=== PATIENT | male | born 1950 | race Caucasian/White ===

== ENCOUNTER 2016-09-17 09:28 | Inpatient (IN) | payer MEDICARE, OTHER ==
[2016-09-17] MEDS ORDERED: ONDANSETRON 4 MG/2 ML VIAL IVP STA (09:50)
[2016-09-17] MEDS ORDERED: SODIUM CHLORIDE 0.9% 1,000 ML IV ONE (09:50)
[2016-09-17] MEDS ORDERED: HYDROmorphone 1 MG/ML SYRINGE IVP STA ×2 (09:50→14:15)
[2016-09-17] MEDS ORDERED: HYDROmorphone 1 MG/ML SYRINGE ONE ×2 (10:04→14:16)
[2016-09-17] MEDS ORDERED: ONDANSETRON 4 MG/2 ML VIAL ONE (10:05)
[2016-09-17] MEDS ORDERED: IOPAMIDOL-300 100 ML VIAL IVP ONE (11:06)
[2016-09-17] MEDS ORDERED: PIPERACILLIN/TAZOBACTAM 4.5 GM in SODIUM CHLORIDE 0.9% MINIBAG 100 ML IV STA (13:53)
[2016-09-17] MEDS ORDERED: ALBUTEROL NEB 2.5 MG/3 ML INH PRN (14:47)
[2016-09-17] MEDS: ONDANSETRON 4 MG/2 ML VIAL IVP PRN (16:53)
[2016-09-17] MEDS: SODIUM CHLORIDE FLUSH 0.9% 10 ML SYRINGE IVP PRN ×2 (16:53→20:05)
[2016-09-17] MEDS: SODIUM CHLORIDE 0.9% 1,000 ML IV SCH ×2 (16:53→23:52)
[2016-09-17] MEDS: HYDROmorphone 1 MG/ML SYRINGE IVP PRN ×2 (17:09→20:05)
[2016-09-17] MEDS: AMPICILLIN/SULBACTAM 3 GM in SODIUM CHLORIDE 0.9% MINIBAG 100 ML IV SCH ×2 (18:05→23:55)
[2016-09-17] MEDS: FORMOTEROL FUMARATE NEB 20 MCG/2 ML INH SCH (19:30)
[2016-09-17] MEDS: BUDESONIDE 0.5 MG/2 ML NEB INH SCH (19:30)
[2016-09-17] MEDS: IPRATROPIUM/ALBUTEROL 3 ML NEB INH SCH (19:30)
[2016-09-17] MEDS: FAMOTIDINE 20 MG/50 ML 50 ML IV SCH (20:04)
[2016-09-17] MEDS: SODIUM CHLORIDE FLUSH 0.9% 10 ML SYRINGE IVP SCH (21:13)
[2016-09-18] MEDS: ONDANSETRON 4 MG/2 ML VIAL IVP PRN
[2016-09-18] MEDS: SODIUM CHLORIDE FLUSH 0.9% 10 ML SYRINGE IVP PRN
[2016-09-18] MEDS: HYDROmorphone 1 MG/ML SYRINGE IVP PRN ×6 (05:09→22:09)
[2016-09-18] MEDS: AMPICILLIN/SULBACTAM 3 GM in SODIUM CHLORIDE 0.9% MINIBAG 100 ML IV SCH ×4 (05:10→23:44)
[2016-09-18] MEDS: SODIUM CHLORIDE FLUSH 0.9% 10 ML SYRINGE IVP SCH ×3 (05:19→21:06)
[2016-09-18] MEDS ORDERED: IPRATROPIUM 0.2 MG/ML NEB INH SCH (07:00)
[2016-09-18] MEDS: IPRATROPIUM/ALBUTEROL 3 ML NEB INH SCH ×4 (07:30→19:30)
[2016-09-18] MEDS: BUDESONIDE 0.5 MG/2 ML NEB INH SCH ×2 (07:30→19:30)
[2016-09-18] MEDS: FORMOTEROL FUMARATE NEB 20 MCG/2 ML INH SCH ×2 (07:30→19:30)
[2016-09-18] MEDS: FAMOTIDINE 20 MG/50 ML 50 ML IV SCH ×2 (08:26→21:11)
[2016-09-18] MEDS: SODIUM CHLORIDE 0.9% 1,000 ML IV SCH ×4 (08:45→23:34)
[2016-09-18] MEDS ORDERED: SODIUM CHLORIDE 0.9% 800 ML IV ONE (09:05)
[2016-09-18] MEDS ORDERED: BUPIVACAINE 0.5%-EPI 1:200000 PF 30 ML VIAL SUBQ ONE (09:29)
[2016-09-18] MEDS ORDERED: LACTATED RINGERS 1,000 ML IV ONE ×2 (09:47)
[2016-09-18] MEDS ORDERED: GLYCOPYRROLATE 1 MG/5 ML VIAL IVP ONE (10:00)
[2016-09-18] MEDS ORDERED: ALBUTEROL 6.7 GM INHALER INH ONE (10:00)
[2016-09-18] MEDS ORDERED: DEXAMETHASONE 4 MG/ML VIAL IVP ONE (10:00)
[2016-09-18] MEDS ORDERED: MIDAZOLAM 2 MG/2 ML VIAL IVP ONE (10:00)
[2016-09-18] MEDS ORDERED: NEOSTIGMINE 1 MG/1 ML 10 ML MDV IVP ONE (10:00)
[2016-09-18] MEDS ORDERED: ACETAMINOPHEN 1,000 MG/100 ML VIAL IV ONE (10:00)
[2016-09-18] MEDS ORDERED: fentaNYL 250 MCG/5 ML VIAL IVP ONE (10:00)
[2016-09-18] MEDS ORDERED: ESMOLOL 100 MG/10 ML VIAL IVP ONE (10:00)
[2016-09-18] MEDS ORDERED: ROCURONIUM 50 MG/5 ML VIAL IVP ONE (10:00)
[2016-09-18] MEDS ORDERED: ONDANSETRON 4 MG/2 ML VIAL IVP ONE (10:00)
[2016-09-18] MEDS ORDERED: LIDOCAINE-MPF 2% 5 ML VIAL IM ONE (10:00)
[2016-09-18] MEDS ORDERED: PROPOFOL 200 MG/20 ML VIAL IVP ONE (10:00)
[2016-09-18] MEDS ORDERED: NALOXONE 0.4 MG/1 ML 10 ML MDV IVP ONE (10:00)
[2016-09-18] MEDS ORDERED: SUCCINYLCHOLINE 200 MG/10 ML VIAL IVP ONE (10:00)
[2016-09-18] MEDS: DOCUSATE SODIUM 250 MG CAPSULE PO SCH ×2 (13:53→21:11)
[2016-09-18] MEDS: HYDROcod/ACETAM 5/325 MG TABLET PO PRN ×3 (16:02→21:11)
[2016-09-19] MEDS: HYDROmorphone 1 MG/ML SYRINGE IVP PRN ×5 (04:57→21:20)
[2016-09-19] MEDS: AMPICILLIN/SULBACTAM 3 GM in SODIUM CHLORIDE 0.9% MINIBAG 100 ML IV SCH ×3 (05:44→18:28)
[2016-09-19] MEDS: HYDROcod/ACETAM 5/325 MG TABLET PO PRN ×4 (05:48→18:01)
[2016-09-19] MEDS: SODIUM CHLORIDE FLUSH 0.9% 10 ML SYRINGE IVP SCH ×3 (06:09→19:19)
[2016-09-19] MEDS: BUDESONIDE 0.5 MG/2 ML NEB INH SCH ×2 (07:50→19:25)
[2016-09-19] MEDS: IPRATROPIUM/ALBUTEROL 3 ML NEB INH SCH ×4 (07:50→19:25)
[2016-09-19] MEDS: FORMOTEROL FUMARATE NEB 20 MCG/2 ML INH SCH ×2 (07:50→19:25)
[2016-09-19] MEDS: SODIUM CHLORIDE 0.9% 1,000 ML IV SCH ×2 (08:05→14:02)
[2016-09-19] MEDS: DOCUSATE SODIUM 250 MG CAPSULE PO SCH ×2 (08:05→21:20)
[2016-09-19] MEDS: FAMOTIDINE 20 MG/50 ML 50 ML IV SCH ×2 (08:05→21:20)
[2016-09-19] MEDS: SODIUM CHLORIDE FLUSH 0.9% 10 ML SYRINGE IVP PRN (08:06)
[2016-09-19] MEDS ORDERED: SODIUM CHLORIDE 0.9% 1,000 ML IV SCH (13:35)
[2016-09-20] MEDS: AMPICILLIN/SULBACTAM 3 GM in SODIUM CHLORIDE 0.9% MINIBAG 100 ML IV SCH ×4 (00:25→20:15)
[2016-09-20] MEDS: HYDROcod/ACETAM 5/325 MG TABLET PO PRN ×2 (00:26→08:40)
[2016-09-20] MEDS: HYDROmorphone 1 MG/ML SYRINGE IVP PRN ×4 (03:50→22:45)
[2016-09-20] MEDS: SODIUM CHLORIDE 0.9% 1,000 ML IV SCH (07:04)
[2016-09-20] MEDS: SODIUM CHLORIDE FLUSH 0.9% 10 ML SYRINGE IVP SCH ×3 (07:05→19:59)
[2016-09-20] MEDS: BUDESONIDE 0.5 MG/2 ML NEB INH SCH ×2 (08:41→21:33)
[2016-09-20] MEDS: IPRATROPIUM/ALBUTEROL 3 ML NEB INH SCH ×4 (08:41→22:14)
[2016-09-20] MEDS: FORMOTEROL FUMARATE NEB 20 MCG/2 ML INH SCH ×2 (08:55→22:14)
[2016-09-20] MEDS ORDERED: SALINE ENEMA 133 ML BOTTLE RC SCH ×2 (09:00→13:00)
[2016-09-20] MEDS: FAMOTIDINE 20 MG/50 ML 50 ML IV SCH ×2 (10:45→21:09)
[2016-09-20] MEDS: DOCUSATE SODIUM 250 MG CAPSULE PO SCH ×2 (10:47→21:09)
[2016-09-20] MEDS ORDERED: SOAP SUDS ENEMA 1 EACH RC PRN (12:10)
[2016-09-20] MEDS: SODIUM CHLORIDE FLUSH 0.9% 10 ML SYRINGE IVP PRN ×2 (19:57→22:45)
[2016-09-21] MEDS: AMPICILLIN/SULBACTAM 3 GM in SODIUM CHLORIDE 0.9% MINIBAG 100 ML IV SCH ×3 (00:41→11:31)
[2016-09-21] MEDS: HYDROcod/ACETAM 5/325 MG TABLET PO PRN ×3 (01:54→10:29)
[2016-09-21] MEDS: SODIUM CHLORIDE FLUSH 0.9% 10 ML SYRINGE IVP SCH (06:40)
[2016-09-21] MEDS: BUDESONIDE 0.5 MG/2 ML NEB INH SCH (07:46)
[2016-09-21] MEDS: IPRATROPIUM/ALBUTEROL 3 ML NEB INH SCH ×2 (07:46→11:45)
[2016-09-21] MEDS: FORMOTEROL FUMARATE NEB 20 MCG/2 ML INH SCH (07:46)
[2016-09-21] MEDS: FAMOTIDINE 20 MG/50 ML 50 ML IV SCH (09:15)
[2016-09-21] MEDS: DOCUSATE SODIUM 250 MG CAPSULE PO SCH (09:15)
[2016-09-21] MEDS: SODIUM CHLORIDE FLUSH 0.9% 10 ML SYRINGE IVP PRN (12:28)
[2016-09-21] MEDS: HYDROmorphone 1 MG/ML SYRINGE IVP PRN (12:28)
== END 2016-09-21 14:51 | disposition home or self-care (01) | DRG 854 ==
PROC: 0FT44ZZ Resection of Gallbladder, Percutaneous Endoscopic Approach (ICD-10-PCS; principal; 2016-09-18 09:00)
DX: A41.51 Sepsis due to Escherichia coli [E. coli] (principal); K80.00 Calculus of gallbladder with acute cholecystitis without obstruction; A41.59 Other Gram-negative sepsis; B95.2 Enterococcus as the cause of diseases classified elsewhere; B96.20 Unspecified Escherichia coli [E. coli] as the cause of diseases classified elsewhere; B96.89 Other specified bacterial agents as the cause of diseases classified elsewhere; K82.8 Other specified diseases of gallbladder; E86.0 Dehydration; K59.00 Constipation, unspecified; J44.9 Chronic obstructive pulmonary disease, unspecified; K21.9 Gastro-esophageal reflux disease without esophagitis; Z87.891 Personal history of nicotine dependence

== ENCOUNTER 2017-11-04 08:00 | Outpatient (CLI) | payer MEDICARE, OTHER ==
[2017-11-04 13:07] LABS: BASOPHILS % (AUTO) 1.1 %; EOSINOPHILS % (AUTO) 1.1 %; HGB - HEMOGLOBIN 14.7 g/dL (14.0-18.0); LYMPHOCYTES % (AUTO) 20.5 %; MEAN CORPUSCULAR HEMOGLOBIN 31.4 pg (27.0-31.0); MEAN CORPUSCULAR HGB CONC 34.6 g/dL (32.0-36.0); MEAN CORPUSCULAR VOLUME 90.9 fL (80.0-94.0); MEAN PLATELET VOLUME 8.4 fL (7.4-11.4); MONOCYTES % (AUTO) 11.1 %; NEUTROPHILS % (AUTO) 66.2 %; PLT - PLATELET COUNT 199 10^3/uL (130-450); RED BLOOD COUNT 4.67 10^6/uL (4.70-6.10); RED CELL DISTRIBUTION WIDTH 12.7 % (12.0-15.0); WHITE BLOOD COUNT 8.8 x10^3/uL (4.8-10.8)
[2017-11-04 13:48] LABS: ABNORMAL LYMPHS % (MANUAL) 0 %; BAND NEUTROPHILS % (MANUAL) 3 %; EOSINOPHILS # (MANUAL) 0.2 10^3/uL (0-0.7); LYMPHOCYTES # (MANUAL) 1.9 10^3/uL (1.5-3.5); LYMPHOCYTES % (MANUAL) 19 %; MONOCYTES # (MANUAL) 1.2 10^3/uL (0.0-1.0); NEUTROPHILS # (MANUAL) 5.5 10^3/uL (1.5-6.6); NEUTROPHILS % (MANUAL) 59 %
[2017-11-04 13:49] LABS: DIFFERENTIAL COMMENT MANUAL DIFFERENTIAL; PLATELET ESTIMATE, MANUAL NORMAL (130-450,000) (NORMAL); PLATELET MORPHOLOGY NORMAL APPEARANCE (NORMAL); RBC MORPHOLOGY (MULTIPLE) NORMAL APPEARANCE (NORMAL)
[2017-11-04 14:03] LABS: ALBUMIN/GLOBULIN RATIO 1.3 (1.0-2.2); ALKALINE PHOSPHATASE 44 IU/L (42-121); ALT ALANINE AMINOTRANSFERASE 16 IU/L (10-60); AST ASPARTATE AMINOTRANSFERASE 18 IU/L (10-42); BILIRUBIN,TOTAL 0.8 mg/dL (0.2-1.0); BUN - BLOOD UREA NITROGEN 13 mg/dL (6-20); CALCIUM 8.5 mg/dL (8.5-10.3); CARBON DIOXIDE - CO2 26 mmol/L (21-32); CHLORIDE 104 mmol/L (101-111); CHOLESTEROL 166 mg/dL; GFR - MDRD 75 (>89); GLUCOSE 92 mg/dL (70-100); HDL CHOLESTEROL 55 mg/dL; LDL CHOLESTEROL,CALCULATED 92 mg/dL; LDL/HDL RATIO 1.7 (<3.6); SODIUM 137 mmol/L (135-145); TOTAL PROTEIN 7.2 g/dL (6.7-8.2); VLDL CHOLESTEROL 19 mg/dL
== END 2017-11-04 08:01 | disposition home or self-care (01) ==
LOC: LAB.N 08:00
PROVIDERS: ATTEND Nurse Practitioner Gerontology
DX: I10 Essential (primary) hypertension (principal)
CPT/HCPCS: 36415; 80053; 80061; 83721; 85025

== ENCOUNTER 2019-01-11 10:45 | Outpatient (CLI) | payer MEDICARE, OTHER ==
--- NOTE | 2019-01-11 15:04 | XRAY Report ---
Reason: COPD Procedure Date: 01/11/2019 Accession Number: [id number] / [id number] Procedure: XR - Chest 2 View X-Ray CPT Code: 08843 FULL RESULT: EXAM: CHEST RADIOGRAPHY EXAM DATE: 01/11/2019 11:25 AM. CLINICAL HISTORY: Chronic obstructive pulmonary disease. COMPARISON: CHEST 2 VIEW PA/LAT 09/17/2016 3:22 PM. TECHNIQUE: 2 views. FINDINGS: Lungs/Pleura: There is hyperlucency and mild hyperinflation bilaterally, again greater on the left than the right, consistent with superimposed emphysema. No focal airspace opacities. No appreciable edema, effusion or extra-ventilatory air. Mediastinum: Heart and mediastinal contours are unremarkable. Other: None. IMPRESSION: Stable radiographic sequela of emphysema. RADIA
== END 2019-01-11 10:46 | disposition home or self-care (01) ==
LOC: DI 10:45
PROVIDERS: ATTEND Internal Medicine
DX: J43.9 Emphysema, unspecified (principal)
CPT/HCPCS: 71046

== ENCOUNTER 2021-02-16 07:00 | Outpatient (CLI) | payer MEDICARE | END 2021-02-16 23:59 | disposition home or self-care (01) | LOC: COV 07:00 | PROVIDERS: ATTEND Ophthalmology | DX: Z01.812 Encounter for preprocedural laboratory examination (principal); Z20.822 Contact with and (suspected) exposure to COVID-19 ==

== ENCOUNTER 2021-02-19 06:57 | Day surgery (SDC) | payer MEDICARE ==
[~2021-02-19 06:57] MED LIST: CYCLOPENTOLATE 1% OPHTH DROPS 2 ML ONE; KETOROLAC 0.45% OPHTH DROPS ONE; PHENYLEPHRINE 2.5% OPHTH 2 ML DROPS ONE; PROPARACAINE 0.5% OPHTH DROPS 15 ML ONE
[2021-02-19] MEDS ORDERED: BRIMONIDINE 0.2% OPHTH DROPS 5 ML ONE (07:02)
[2021-02-19] MEDS ORDERED: EPINEPHrine 1 MG/ML AMP ONE (07:02)
[2021-02-19] MEDS ORDERED: BSS/LIDOCAINE/EPINEPHRINE 1 ML SYRINGE ONE (07:02)
[2021-02-19] MEDS ORDERED: TRIAMCIN/MOXIFLOX OPHTHALMIC 0.6 ML VIAL IO ONE ×2 (07:02→08:50)
[2021-02-19] MEDS ORDERED: TIMOLOL 0.5% OPHTH DROPS ONE (07:02)
[2021-02-19] MEDS ORDERED: VANCOMYCIN OPHTHALMI 8MG/0.8ML 8 MG/0.8 ML SYRINGE IO ONE ×2 (07:03→08:50)
[2021-02-19] MEDS ORDERED: MIDAZOLAM 2 MG/2 ML VIAL ONE (07:06)
[2021-02-19] MEDS ORDERED: LACTATED RINGERS 1,000 ML IV ONE (07:07)
--- NOTE | 2021-02-19 08:12 | ANESTHESIA ---
Pre-Anesthesia VS, & Labs - Diagnosis right senile combined cataract - Procedure right cataract extraction with intraocular lens implant Vital Signs: Temp Pulse Resp BP Pulse Ox 36.1 C L 80 16 141/86 H 98 02/19/21 07:12 02/19/21 07:12 02/19/21 07:12 02/19/21 07:12 02/19/21 07:12 Height: 5 ft 11 in Weight (kg): 80.7 kg Body Mass Index: 24.7 BMI Classification: Healthy weight - NPO >8 hours Home Medications and Allergies Albuterol Sulfate [Proair Hfa Inhaler] 2 puffs INH Q4H PRN 09/17/16 Fluticasone/Salmeterol [Advair 100-50 Diskus] 1 puffs INH BID 09/17/16 Tiotropium [place] [Spiriva] 1 puffs INH DAILY 09/17/16 Allergies/Adverse Reactions: Allergies Allergy/AdvReac Type Severity Reaction Status Date / Time No Known Drug Allergies Allergy Verified 02/18/21 14:33 Anes History & Medical History - Anesthetic History Anesthesia Complications: reports: No previous complications - Medical History Cardiovascular: reports: None Pulmonary: reports: Asthma, COPD Gastrointestinal: reports: GERD Urinary: reports: None Musculoskeletal: reports: Scoliosis Endocrine/Autoimmune: reports: None Blood Disorders: reports: None Skin: reports: None Smoking Status: Never smoker - Surgical History General: reports: Cholecystectomy Eyes Ears Nose Throat (EENT): reports: Other Exam General: Alert Dental: WNL Mouth Opening: Greater than 4 Fingerbreadths Mallampati classification: II Respiratory: Lungs clear Cardiovascular: Regular rate Mental/Cognitive Status: Alert/Oriented X3 Plan Anesthesia Type: MAC Consent for Procedure(s) Verified and Reviewed: Yes Code Status: Attempt Resuscitation ASA classification: 2-Mild systemic disease Is this case an emergency?: No
[2021-02-19] MEDS ORDERED: TIMOLOL 0.5% OPHTH DROPS OPTH ONE (08:49)
[2021-02-19] MEDS ORDERED: EPINEPHrine 1 MG/ML AMP IR ONE (08:49)
[2021-02-19] MEDS ORDERED: CHONDR SULF/HYALURONATE SYRINGE IO ONE (08:49)
[2021-02-19] MEDS ORDERED: BRIMONIDINE 0.2% OPHTH DROPS 5 ML OPTH ONE (08:49)
[2021-02-19] MEDS ORDERED: PROPARACAINE 0.5% OPHTH DROPS 15 ML EACHEYE ONE (08:50)
[2021-02-19] MEDS ORDERED: BSS/LIDOCAINE/EPINEPHRINE 1 ML SYRINGE IO ONE (08:50)
--- NOTE | 2021-02-19 09:09 | OPERATIVE REPORT ---
Operative Report - Other Other Information/Narrative: Date of Surgery: 02/19/21 Preop Dx: Visually significant cataract right eye. This was the first cataract surgery. Postop Dx: Same Procedure: Phacoemulsification with posterior chamber toric intraocular lens implant right eye Surgeon: Dr. Miguel Jules Anesthesia: Monitored anesthesia care Complications: None Operative Indications: This is a 70-year-old M with progressive vision loss in the right eye due to 3+ nuclear sclerotic. Best corrected visual acuity was 20/30 with glare to 20/500 vision in the right eye. Indications for surgery were: - Overall decrease in vision - Difficulty seeing words, closed captions, or game scores on TV - Difficulty seeing street signs - Difficulty driving at night because of headlights from other vehicles - Difficulty with glare or bright lights in any situation - Decreased acuity with firearms The patient was consented at length concerning the risks and benefits of catarac t surgery after which the patient expressed a desire to proceed with surgery. Operative Procedure: The patients cornea was marked in the pre-surgical area to indicate the axis for the toric intraocular lens. The patient was taken into OR#3 and placed under monitored anesthesia care. A surgical time-out was conducted confirming correct patient, correct procedure, and correct surgical site. The patient was given topical anesthesia and then prepped and draped in the usual sterile fashion. The eye was entered at the 6 and 3 oclock positions. Intracameral Shugarcaine was injected into the anterior chamber followed by a dispersive viscoelastic. A continuous-tear curvilinear capsulorhexis was performed. The nucleus was hydrodissected and phacoemulsified. The cortex was evacuated using automated infusion and aspiration. A cohesive viscoelastic was injected into the capsular bag and a 14.0 diopter toric intraocular lens was inserted into the bag and rotated to axis 094. Infusion and aspiration were used to evacuate the viscoelastic materials from the eye and the IOL was verified to remain on axis. The wounds were hydrated and the eye inflated to physiologic pressure using balanced salt solution. Approximately 0.25ml of a mixture of triamcinolone and moxifloxacin was injected trans- sclerally into the vitreous in the inferotemporal quadrant using a 30 gauge cannula. An additional 0.55ml of a mixture of triamcinolone, moxifloxacin, and vancomycin was injected subconjunctivally in the superior quadrant for infection and inflammation prophylaxis. Wound integrity was checked with Weck-Conchita sponges and the IOL axis was once again verified to be on the correct axis. The patient was taken from the operating room in good condition and given post-op i nstructions.
[2021-02-19 09:21] VITALS: BP 142/98
--- NOTE | 2021-02-19 13:41 | ANESTHESIA POST OP EVALUATION ---
Anesthesia Post Eval - Post Anesthesia Eval Vitals: Last Vital Signs Temp 36.2 C L 02/19/21 09:19 Pulse 70 02/19/21 09:19 Resp 18 02/19/21 09:19 BP 142/98 H 02/19/21 09:19 Pulse Ox 100 02/19/21 09:19 CV Function Including HR & BP: Stable Pain Control: Satisfactory Nausea & Vomiting: Negative Mental Status: Baseline Respiratory Status: Airway Patent Hydration Status: Satisfactory Anesthesia Complications: None
== END 2021-02-19 06:58 | disposition home or self-care (01) ==
LOC: SDS 06:57
PROVIDERS: ATTEND Ophthalmology
DX: H25.811 Combined forms of age-related cataract, right eye (principal); J44.9 Chronic obstructive pulmonary disease, unspecified
CPT/HCPCS: 66984; A9270; J3490; J7120; V2632

== ENCOUNTER 2021-05-07 06:39 | Day surgery (SDC) | payer MEDICARE ==
[2021-05-07] MEDS ORDERED: LACTATED RINGERS 1,000 ML IV ONE ×2 (06:46→08:36)
--- NOTE | 2021-05-07 07:27 | ANESTHESIA ---
Pre-Anesthesia VS, & Labs - Diagnosis L senile combined cataract - Procedure L extraction cataract w/IOL Vital Signs: Temp Pulse Resp BP Pulse Ox 36.4 C L 75 20 123/75 98 05/07/21 06:51 05/07/21 06:51 05/07/21 06:51 05/07/21 06:51 05/07/21 06:51 Height: 6 ft Weight (kg): 82 kg Body Mass Index: 24.5 BMI Classification: Healthy weight - NPO >8 hours - Lab Results Lab results reviewed: Yes Home Medications and Allergies Home Medications: Ambulatory Orders Budesonide/Formoterol Fumarate [Symbicort 160-4.5 Mcg Inhaler] 10.2 gm IH 1-2XD 05/06/21 Albuterol Sulfate [Proair Hfa Inhaler] 2 puffs INH Q4H PRN 09/17/16 Tiotropium [place] [Spiriva] 1 puffs INH DAILY 09/17/16 Budesonide/Formoterol Fumarate [Symbicort 160-4.5 Mcg Inhaler] 10.2 gm IH 1-2XD 05/06/21 Allergies/Adverse Reactions: Allergies Allergy/AdvReac Type Severity Reaction Status Date / Time No Known Drug Allergies Allergy Verified 02/18/21 14:33 Anes History & Medical History - Anesthetic History Anesthesia Complications: reports: No previous complications Family history of Anesthesia Complications: Denies Family history of Malignant Hyperthermia: Denies - Medical History Cardiovascular: reports: None Pulmonary: reports: COPD, Emphysema Gastrointestinal: reports: None Urinary: reports: None Musculoskeletal: reports: None Endocrine/Autoimmune: reports: None Blood Disorders: reports: None Skin: reports: None Smoking Status: Never smoker - Surgical History General: reports: Cholecystectomy Eyes Ears Nose Throat (EENT): reports: Cataracts Exam General: Alert, Oriented x3, Cooperative Dental: WNL Mouth Openin Fingerbreadth Neck Mobility: Normal Mallampati classification: II Thyromental Distance: 4-6 cm Respiratory: Lungs clear, Normal breath sounds, No respiratory distress, Other (clears throat routinely after talking) Cardiovascular: Regular rate Neurological: Normal speech Mental/Cognitive Status: Alert/Oriented X3, Normal for patient Cognitive Status: Within normal limits Plan Anesthesia Type: MAC Consent for Procedure(s) Verified and Reviewed: Yes Code Status: Attempt Resuscitation ASA classification: 2-Mild systemic disease Is this case an emergency?: No
[2021-05-07] MEDS ORDERED: EPINEPHrine 1 MG/ML AMP IR ONE (08:02)
[2021-05-07] MEDS ORDERED: BRIMONIDINE 0.2% OPHTH DROPS 5 ML OPTH ONE (08:02)
[2021-05-07] MEDS ORDERED: CHONDR SULF/HYALURONATE SYRINGE IO ONE (08:03)
[2021-05-07] MEDS ORDERED: BSS/LIDOCAINE/EPINEPHRINE 1 ML SYRINGE IO ONE (08:03)
[2021-05-07] MEDS ORDERED: TIMOLOL 0.5% OPHTH DROPS OPTH ONE (08:03)
[2021-05-07] MEDS ORDERED: PROPARACAINE 0.5% OPHTH DROPS 15 ML EACHEYE ONE (08:04)
[2021-05-07] MEDS ORDERED: VANCOMYCIN OPHTHALMI 8MG/0.8ML 8 MG/0.8 ML SYRINGE IO ONE (08:04)
[2021-05-07] MEDS ORDERED: TRIAMCIN/MOXIFLOX OPHTHALMIC 0.6 ML VIAL IO ONE (08:04)
[2021-05-07] MEDS ORDERED: MIDAZOLAM 2 MG/2 ML VIAL ONE (08:08)
--- NOTE | 2021-05-07 08:43 | OPERATIVE REPORT ---
Operative Report - Other Other Information/Narrative: Date of Surgery: 05/07/21 Preop Dx: Visually significant cataract left eye. Cataract surgery was performed in the right eye on . Postop Dx: Same Procedure: Phacoemulsification with posterior chamber intraocular lens implant left eye Surgeon: Dr. Miguel Jules Anesthesia: Monitored anesthesia care Complications: None Operative Indications: This is a 71-year-old M with progressive vision loss in the left eye due to 2+ nuclear sclerotic and 2-3+ cortical cataract. Best corrected visual acuity was 20/25 with glare to 20/70 vision in the left eye. Indications for surgery were: - Overall decrease in vision - Difficulty seeing words on a computer screen - Difficulty reading - Difficulty seeing words, closed captions, or game scores on TV - Difficulty seeing street signs - Difficulty driving in low light or at night - Difficulty driving at night because of headlights from other vehicles - Difficulty with glare or bright lights in any situation - Decreased acuity with firearms The patient was consented at length concerning the risks and benefits of catar act surgery after which the patient expressed a desire to proceed with surgery. Operative Procedure: The patient was taken into OR#3 and placed under monitored anesthesia care. A surgical time-out was conducted confirming correct patient, correct procedure, and correct surgical site. The patient was given topical anesthesia and then prepped and draped in the usual sterile fashion. The eye was entered at the 6 and 3 oclock positions. Intracameral Shugarcaine was injected into the anterior chamber followed by a dispersive viscoelastic. A continuous-tear curvilinear capsulorhexis was performed. The nucleus was hydrodissected and phacoemulsified. The cortex was evacuated using automated infusion and aspiration. A cohesive viscoelastic was injected into the capsular bag and a 16.0 diopter intraocular lens was inserted into the bag. Infusion and aspiration were used to evacuate the viscoelastic materials from the eye. The wounds were hydrated and the eye inflated to physiologic pressure using balanced salt solution. Approximately 0.25ml of a mixture of triamcinolone and moxifloxacin was injected trans-sclerally into the vitreous in the inferotemporal quadrant using a 30 gauge cannula. An additional 0.55ml of a mixture of triamcinolone, moxifloxacin, and vancomycin was injected subconjunctivally in the superior quadrant for infection and inflammation prophylaxis. Wound integrity was checked with Weck-Conchita sponges. The patient was taken from the operating room in good condition and given post-op instructions.
[2021-05-07 08:56] VITALS: BP 117/67
--- NOTE | 2021-05-07 09:03 | ANESTHESIA POST OP EVALUATION ---
Anesthesia Post Eval - Post Anesthesia Eval Vitals: Last Vital Signs Temp 36.7 C 05/07/21 08:55 Pulse 58 L 05/07/21 08:55 Resp 16 05/07/21 08:55 BP 117/67 05/07/21 08:55 Pulse Ox 100 05/07/21 08:55 CV Function Including HR & BP: Stable Pain Control: Satisfactory Nausea & Vomiting: Negative Mental Status: Baseline Respiratory Status: Airway Patent Hydration Status: Satisfactory Anesthesia Complications: None
== END 2021-05-07 06:40 | disposition home or self-care (01) ==
LOC: SDS 06:39
PROVIDERS: ATTEND Ophthalmology
DX: H25.812 Combined forms of age-related cataract, left eye (principal); J43.9 Emphysema, unspecified; Z98.41 Cataract extraction status, right eye; Z87.891 Personal history of nicotine dependence
CPT/HCPCS: 66984; A9270; J3490; J7120

== ENCOUNTER 2021-08-16 14:25 | Outpatient (CLI) | payer MEDICARE ==
--- NOTE | 2021-08-16 15:56 | Ultrasound Report ---
PROCEDURE: Abdomen Limited INDICATIONS: ELEVATED LFT TECHNIQUE: Real-time focused scanning was performed of the abdomen, with image documentation. COMPARISON: 09/17/2016 FINDINGS: The liver measures 13.3 cm. Hepatic echogenicity is increased consistent with hepatic stea tosis. The patient is status post cholecystectomy. The common bile duct is normal measuring 5 mm. The pancreas is not well-seen due to overlying bowel gas. The right kidney has a normal size. The IVC is patent. IMPRESSION: 1. No acute ultrasound abnormality. 2. Status post cholecystectomy. 3. Hepatic steatosis. Reviewed by: Shaun Morfin on 08/16/2021 2:55 PM [place] Approved by: Shaun Morfin on 08/16/2021 2:55 PM [facility] Station ID: [id number]
== END 2021-08-16 14:26 | disposition home or self-care (01) ==
LOC: DI 14:25
PROVIDERS: ATTEND Internal Medicine
DX: R74.8 Abnormal levels of other serum enzymes (principal); K76.0 Fatty (change of) liver, not elsewhere classified

== ENCOUNTER 2022-08-30 16:57 | Inpatient (IN) | payer MEDICARE ==
[2022-08-30] MEDS ORDERED: ONDANSETRON 4 MG/2 ML VIAL IVP STA (17:11)
[2022-08-30] MEDS ORDERED: SODIUM CHLORIDE 0.9% 1,000 ML IV STA ×3 (17:11→21:25)
[2022-08-30 17:40] LABS: BILIRUBIN,TOTAL 8.6 mg/dL (0.2-1.0); CALCIUM 9.2 mg/dL (8.5-10.3); CREATININE 1.1 mg/dL (0.6-1.2); POTASSIUM 4.4 mmol/L (3.5-5.0)
[2022-08-30 18:16] LABS: BASOPHILS % (AUTO) 0.4 %; EOSINOPHILS # (AUTO) 0.6 10^3/uL (0.0-0.7); EOSINOPHILS % (AUTO) 4.9 %; HCT - HEMATOCRIT 45.7 % (42.0-52.0); HGB - HEMOGLOBIN 15.2 g/dL (14.0-18.0); LYMPHOCYTES # (AUTO) 0.2 10^3/uL (1.5-3.5); LYMPHOCYTES % (AUTO) 2.1 %; MEAN CORPUSCULAR HEMOGLOBIN 30.3 pg (27.0-31.0); MEAN CORPUSCULAR HGB CONC 33.3 g/dL (32.0-36.0); MEAN CORPUSCULAR VOLUME 91.2 fL (80.0-94.0); MEAN PLATELET VOLUME 9.5 fL (7.4-11.4); MONOCYTES # (AUTO) 0.1 10^3/uL (0.0-1.0); MONOCYTES % (AUTO) 0.4 %; NEUTROPHILS # (AUTO) 10.2 10^3/uL (1.5-6.6); NEUTROPHILS % (AUTO) 91.5 %; RED BLOOD COUNT 5.01 10^6/uL (4.70-6.10); WHITE BLOOD COUNT 11.2 x10^3/uL (4.8-10.8)
[2022-08-30 18:35] LABS: PLATELET ESTIMATE, MANUAL NORMAL (130-450,000) (NORMAL); PLATELET MORPHOLOGY PLATELET CLUMPING (NORMAL)
--- NOTE | 2022-08-30 18:57 | Ultrasound Report ---
PROCEDURE: Abdomen Limited INDICATIONS: elevated LFT, vomiting TECHNIQUE: Real-time focused scanning was performed of the abdomen, with image documentation. COMPARISON: 08/16/2021 FINDINGS: The liver demonstrates normal size. The liver demonstrates mildly increased echogenicity, which limits ultrasound sensitivity for detection of masses. The main portal vein demonstrates dre l size and hepatopedal flow. Status post cholecystectomy. No biliary ductal dilatation is seen. The common bile duct measures 6 mm. The pancreas is obscured. The visualized right kidney is unremarkable. Overall scan quality is limited by body habitus and bowel gas, as well as patient motion. IMPRESSION: Increased liver echogenicity is seen. This is nonspecific, yet it is most commonly attributed to fatt y infiltration. Status post cholecystectomy, without biliary dilatation. Note: Concordant preliminary findings given by the wood milling machine tender upon the completion of the examination to Dr. Orona. Reviewed by: Efrem Duncan MD on 08/30/2022 5:56 PM [place] Approved by: Efrem Duncan MD on 08/30/2022 5:56 PM [facility] Station ID: [id number]
--- NOTE | 2022-08-30 19:36 | ED Physician Documentation ---
History of Present Illness - Stated complaint Stated Complaint: COPD,VOMITING,SOA,SWEATING - Chief complaint Chief Complaint: Abd Pain - History obtained from History obtained from: Patient, Family - History of Present Illness Timing: Yesterday Pain level max: 6 Pain level now: 4 - Additonal information Additional information: Patient is a 72-year-old male who presents to the emergency department with vomiting and difficulty breathing. History of COPD, he uses oxygen at home. He states he feels like he has food poisoning after eating molded oranges last night. Complains of abdominal cramping diffusely. He has had a cholecystectomy in the past. Nothing makes it better or worse. Patient states that he is usually on 2 L of oxygen at home. He states his entire family has been sick with COVID. He took a home COVID test which was negative. He has had fevers and chills. No measured fevers. Review of Systems Constitutional: denies: Fever, Chills Nose: reports: Rhinorrhea / runny nose, Congestion Throat: denies: Sore throat Cardiac: denies: Chest pain / pressure, Palpitations Respiratory: reports: Dyspnea, Cough, Wheezing GI: denies: Abdominal Pain, Nausea, Vomiting, Diarrhea Skin: denies: Rash Musculoskeletal: denies: Neck pain, Back pain Neurologic: denies: Headache PD PAST MEDICAL HISTORY - Past Medical History Past Medical History: Yes Cardiovascular: None Respiratory: COPD, Emphysema Endocrine/Autoimmune: None GI: None : None HEENT: Chronic hearing loss Psych: None Musculoskeletal: None Derm: None - Past Surgical History Past Surgical History: No General: Cholecystectomy HEENT: Cataracts - Present Medications Home Medications: Ambulatory Orders Medication Instructions Recorded Confirmed Albuterol Sulfate [Proair Hfa 2 puffs INH Q4H PRN 09/17/16 08/30/22 Inhaler] Tiotropium [place] [Spiriva 1 puffs INH DAILY 09/17/16 08/30/22 Handihaler] Budesonide/Formoterol Fumarate 10.2 gm IH 1-2XD 05/06/21 08/30/22 [Symbicort 160-4.5 Mcg Inhaler] - Allergies Allergies/Adverse Reactions: Allergies Allergy/AdvReac Type Severity Reaction Status Date / Time No Known Drug Allergies Allergy Verified 08/30/22 17:02 - Social History Does the pt smoke?: No Smoking Status: Never smoker Does the pt drink ETOH?: Yes Does the pt have substance abuse?: No - Immunizations Immunizations are current?: Yes - POLST Patient has POLST: No PD ED PE NORMAL - Vitals Vital signs reviewed: Yes - General General: Alert and oriented X 3, Well developed/nourished, Other (Mild increased work of breathing, Jaundiced) - HEENT HEENT: PERRL, Moist mucous membranes, Pharynx benign - Neck Neck: Supple, no meningeal sign - Cardiac Cardiac: RRR - Respiratory Respiratory: No respiratory distress, Clear bilaterally - Abdomen Abdomen: Soft, Non tender, Non distended - Derm Derm: Warm and dry, No rash - Extremities Extremities: No calf tenderness / cord - Neuro Neuro: Alert and oriented X 3 - Psych Psych: Normal mood, Normal affect Results - Vitals Vitals: Vital Signs - 24 hr 08/30/22 08/30/22 08/30/22 17:02 18:14 18:33 Temperature 36.5 C Heart Rate 125 H 111 H 105 H Respiratory 24 22 18 Rate Blood Pressure 133/100 H 87/51 L 104/73 O2 Saturation 92 98 98 If not protocol 4 4 : Oxygen Flow, liters/minute 08/30/22 08/30/22 08/30/22 20:00 21:38 22:26 Temperature 36.7 C 37.3 C Heart Rate 103 H 102 H 92 Respiratory 18 24 24 Rate Blood Pressure 90/78 95/62 94/58 L O2 Saturation 98 100 100 If not protocol 4 4 : Oxygen Flow, liters/minute Oxygen O2 Source Oxymask - Labs Labs: Laboratory Tests 08/30/22 08/30/22 08/30/22 17:24 18:09 20:15 WBC 11.2 H RBC 5.01 Hgb 15.2 Hct 45.7 MCV 91.2 MCH 30.3 MCHC 33.3 RDW 13.0 Plt Count TNP MPV 9.5 Neut # (Auto) 10.2 H Lymph # (Auto) 0.2 L [place] # (Auto) 0.1 Eos # (Auto) 0.6 Baso # (Auto) 0.0 Absolute Nucleated RBC 0.00 Nucleated RBC % 0.0 Platelet Estimate NORMAL (130-450,000) Platelet Morphology PLATELET CLUMPING Sodium 138 Potassium 4.4 Chloride 100 L Carbon Dioxide 25 Anion Gap 13.0 BUN 15 Creatinine 1.1 Estimated GFR (MDRD) 66 L Glucose 68 L Lactic Acid Calcium 9.2 Total Bilirubin 8.6 H AST 183 H ALT 206 H Alkaline Phosphatase 252 H Total Protein 8.0 Albumin 4.0 Globulin 4.0 Albumin/Globulin Ratio 1.0 Lipase 30 Nasal Adenovirus (PCR) NOT DETECTED Nasal B. parapertussis DNA (PCR) NOT DETECTED Nasal Coronavir 229E PCR NOT DETECTED Nasal Coronavir HKU1 PCR NOT DETECTED Nasal Coronavir NL63 PCR NOT DETECTED Nasal Coronavir OC43 PCR NOT DETECTED Nasal Enterovir/Rhinovir PCR NOT DETECTED Nasal Influenza B PCR NOT DETECTED Nasal Influenza A PCR NOT DETECTED Nasal Parainfluen 1 PCR NOT DETECTED Nasal Parainfluen 2 PCR NOT DETECTED Nasal Parainfluen 3 PCR NOT DETECTED Nasal Parainfluen 4 PCR NOT DETECTED Nasal RSV (PCR) NOT DETECTED Nasal B.pertussis DNA PCR NOT DETECTED Nasal C.pneumoniae (PCR) NOT DETECTED [place] Human Metapneumo PCR NOT DETECTED Nasal M.pneumoniae (PCR) NOT DETECTED Nasal SARS-CoV-2 (PCR) DETECTED A 08/30/22 22:23 WBC RBC Hgb Hct MCV MCH MCHC RDW Plt Count MPV Neut # (Auto) Lymph # (Auto) [place] # (Auto) Eos # (Auto) Baso # (Auto) Absolute Nucleated RBC Nucleated RBC % Platelet Estimate Platelet Morphology Sodium Potassium Chloride Carbon Dioxide Anion Gap BUN Creatinine Estimated GFR (MDRD) Glucose Lactic Acid 3.2 H* Calcium Total Bilirubin AST ALT Alkaline Phosphatase Total Protein Albumin Globulin Albumin/Globulin Ratio Lipase Nasal Adenovirus (PCR) Nasal B. parapertussis DNA (PCR) Nasal Coronavir 229E PCR Nasal Coronavir HKU1 PCR Nasal Coronavir NL63 PCR Nasal Coronavir OC43 PCR Nasal Enterovir/Rhinovir PCR Nasal Influenza B PCR Nasal Influenza A PCR Nasal Parainfluen 1 PCR Nasal Parainfluen 2 PCR Nasal Parainfluen 3 PCR Nasal Parainfluen 4 PCR Nasal RSV (PCR) Nasal B.pertussis DNA PCR Nasal C.pneumoniae (PCR) [place] Human Metapneumo PCR Nasal M.pneumoniae (PCR) Nasal SARS-CoV-2 (PCR) - Rads (name of study) Chest x-ray Radiology: Final report received, See rad report Right upper quadrant abdominal ultrasound Radiology: Final report received, See rad report PD Medical Decision Making - ED course Complexity details: reviewed results, re-evaluated patient, considered differential, d/w patient, d/w continuous improvement consultant ED course: Patient is a 72-year-old male with COPD, exacerbation of underlying COPD as well as positive for COVID. He usually uses 2 L of home O2 but drops quickly down to the mid 80s oxygen saturation on 2 L even lying in bed. Therefore he was increased to 4 L on an oxygen mask. Patient feels better and is satting in the mid 90s. He was given IV Solu-Medrol, DuoNeb treatment. He also has elevation of his liver function tests and bilirubin. Ultrasound does not show any acute abnormalities other than fatty liver. Has had his gallbladder removed. There is no biliary ductal dilatation to suggest obstructed stone. Acute hepatitis panel was sent. Patient will need to be admitted for further care for COPD exacerbation and COVID. LFTs to be rechecked tomorrow. Discussed the case with the hospitalist, recommends GI consultation and CT abdomen pelvis. Patient will be signed out to Dr. Wang, oncoming ED physician for further care. Departure - Departure Disposition: 66 [facility] DC/Xfer Clinical Impression: COVID, COPD exacerbation, Hyperbilirubinemia, Hypoxia Hypotension Qualifiers: Hypotension type: unspecified hypotension type Qualified Code(s): I95.9 - Hypotension, unspecified Condition: Stable
--- NOTE | 2022-08-30 20:44 | XRAY Report ---
PROCEDURE: Chest 1 View X-Ray INDICATIONS: cough TECHNIQUE: One view of the chest was acquired. COMPARISON: Chest x-ray 01/11/2019. FINDINGS: Surgical changes and devices: None. Lungs and pleura: No pleural effusions or pneumothorax. No acute consolidation. There is hyperinflat ion of the lungs with flattening of the hemidiaphragms compatible with COPD. Mediastinum: Mediastinal contours appear normal. Heart size is normal. Bones and chest wall: No suspicious bony lesions. Overlying soft tissues appear unremarkable. IMPRESSION: 1. No acute cardiopulmonary disease. 2. Findings compatible with COPD. Reviewed by: Mic Neumann MD on 08/30/2022 8:43 PM PST Approved by: Mic Neumann MD on 08/30/2022 8:43 PM [facility] Station ID: [id number]
[2022-08-30 21:09] LABS: CORONAVIRUS 229E-RESP PCR NOT DETECTED; CORONAVIRUS HKU1-RESP PCR NOT DETECTED; CORONAVIRUS NL63-RESP PCR NOT DETECTED; CORONAVIRUS OC43-RESP PCR NOT DETECTED
[2022-08-30 21:11] LABS: B. PARAPERTUSSIS- RESP PCR PAN NOT DETECTED; B. PERTUSSIS- RESP PCR PANEL NOT DETECTED; C. PNEUMONIAE- RESP PCR PANEL NOT DETECTED; HUMAN METAPNEUMOVIRUS NOT DETECTED; INFLUENZA A- RESP PCR PANEL NOT DETECTED; INFLUENZA B - RESP PCR PANEL NOT DETECTED; M. PNEUMONIAE- RESP PCR PANEL NOT DETECTED; PARAINFLUENZA VIRUS 1 NOT DETECTED; PARAINFLUENZA VIRUS 2 NOT DETECTED; PARAINFLUENZA VIRUS 3 NOT DETECTED; PARAINFLUENZA VIRUS 4 NOT DETECTED; RHINOVIRUS/ENTEROVIRUS NOT DETECTED; RSV- RESP PCR PANEL NOT DETECTED; SARS-CoV-2 -RESP PCR PANEL DETECTED
[2022-08-30] MEDS ORDERED: methylPREDNISolone SUCCINATE 125 MG/2 ML VIAL IVP STA (21:27)
[2022-08-30] MEDS ORDERED: IPRATROPIUM/ALBUTEROL 3 ML NEB INH STA (21:27)
[2022-08-30] MEDS ORDERED: iohexoL-300 100 ML VIAL ONE (22:45)
--- NOTE | 2022-08-30 22:56 | ED Physician Documentation ---
ED Addendum - Addendum Addendum: 08/30/22 22:51 patient endorsed to me by Dr. Orona awaiting GI consult. Just before leaving shift, Dr. Orona was actually was able to talk with Dr. Wagoner, [facility] who states LFT elevation is likely attributable to viral infection (covid) and MRCP is not necessary given hx of cholecystectomy and CBD not dilated on ultrasound. d/w telehealth Dr. Berman who will admit. Impression 1. covid-19 2. hypoxia 3. copd exacerbation Condition stable Disposition admit [facility] 08/30/22 23:30
[2022-08-30 23:03] LABS: INR 1.6 (0.8-1.2); PT - PROTHROMBIN TIME 17.1 secs (9.9-12.6)
[2022-08-30 23:10] LABS: PARTIAL THROMBOPLASTIN TIME 33.6 secs (24.9-33.3)
[2022-08-30] MEDS ORDERED: iohexoL-300 100 ML VIAL IVP ONE (23:34)
--- NOTE | 2022-08-31 00:21 | CT Report ---
PROCEDURE: ABDOMEN/PELVIS W INDICATIONS: elevated LFT, vomiting CONTRAST: Omni 300 100ml TECHNIQUE: After the administration of intravenous contrast, 5 mm thick sections acquired from the diaphragms to the symphysis. 5 mm thick coronal and sagittal reformats were acquired. For radiation dose reducti on, the following was used: automated exposure control, adjustment of mA and/or kV according to stephenie ent size. COMPARISON: CT abdomen pelvis 09/17/2016. FINDINGS: Image quality: There is mild motion artifact. Lung bases:There are centrilobular emphysematous changes within the visualized lung bases. Heart: Heart is normal in size. A minimal pericardial effusion is present. There is a small hiatal h ernia. ABDOMEN: Liver: No mass lesion. Gallbladder:Surgically absent. Biliary ducts:No intrahepatic biliary ductal dilatation. Common bile duct is at the upper limits of normal measuring up to 0.7 cm. Pancreas: Unremarkable. Spleen: Normal in size. Adrenal Glands: No adrenal nodules. Kidneys and Ureters: No hydronephrosis. Stomach and Bowel: Stomach and small bowel loops are normal in caliber and wall thickness. No eviden ce of appendicitis. There is mild colonic wall thickening within the ascending and sigmoid colon. Col onic diverticulosis is present without articular colitis. Peritoneum: No abnormal intraperitoneal fluid. No free air. Ventral Wall: No hernia. Abdominal Nodes: No retroperitoneal or mesenteric adenopathy by size criteria. Vessels: Aorta and inferior vena cava are normal in size. PELVIS: Pelvic Organs:There is mild enlargement of the prostate.. Bladder: Unremarkable. Pelvic Nodes: No enlarged lymph nodes. Miscellaneous: No inguinal hernias. Bones: Visualized osseous structures demonstrate no suspicious lesions. IMPRESSION: 1. Mild segmental wall thickening of the distal colon suggestive of a mild colitis. 2. Colonic diverticulosis without acute diverticulitis. 3. Borderline extrahepatic biliary ductal dilatation may reflect sequelae of prior cholecystectomy. R ecommend correlation with laboratory values. Reviewed by: Mic Neumann MD on 08/31/2022 12:20 AM PST Approved by: Mic Neumann MD on 08/31/2022 12:20 AM [facility] Station ID: [id number]
[2022-08-31] MEDS ORDERED: SODIUM CHLORIDE FLUSH 0.9% 10 ML SYRINGE IVP PRN (00:43)
[2022-08-31] MEDS ORDERED: LORATADINE 10 MG TABLET PO STA (00:52)
[2022-08-31] MEDS ORDERED: NIRMATRELVIR/RITONAVIR PREPACK PO STA (00:53)
--- NOTE | 2022-08-31 01:19 | PROVIDER PROGRESS NOTE ---
Hospitalist Cross-cover Note - Cross-Cover Note Cross-Cover Note: Consult Information Member Facility: [facility] Facility Requesting Clinician: Parmjit Orona MD Patient Name: francy augustine Date of : 1950 Gender: Male Reason for Consult Reason for Consult: Admit: non-ICU Clinical Note Clinical Note: discussed with ed provider "COPD exacerbation, COVID, elevated LFT, hypotension" per ed report - "Patient is a 72-year-old male who presents to the emergency department with vomiting and difficulty breathing. History of COPD, he uses oxygen at home. He states he feels like he has food poisoning after eating molded oranges last night. Complains of abdominal cramping diffusely. He has had a cholecystectomy in the past. Nothing makes it better or worse. Patient states that he is usually on 2 L of oxygen at home. He states his entire family has been sick with COVID. He took a home COVID test which was negative. He has had fevers and chills. No measured fevers." "Patient is a 72-year-old male with COPD, exacerbation of underlying COPD as well as positive for COVID. He usually uses 2 L of home O2 but drops quickly down to the mid 80s oxygen saturation on 2 L even lying in bed. Therefore he was increased to 4 L on an oxygen mask. Patient feels better and is satting in the mid 90s. He was given IV Solu-Medrol, DuoNeb treatment. He also has elevation of his liver function tests and bilirubin. Ultrasound does not show any acute abnormalities other than fatty liver. Has had his gallbladder removed. There is no biliary ductal dilatation to suggest obstructed stone. Acute hepatitis panel was sent. Patient will need to be admitted for further care for COPD exacerbation and COVID. LFTs to be rechecked tomorrow." "patient endorsed to me by Dr. Orona awaiting GI consult. Just before leaving shift, Dr. Orona was actually was able to talk with Dr. Wagoner, [facility] who states LFT elevation is likely attributable to viral infection (covid) and MRCP is not necessary given hx of cholecystectomy and CBD not di lated on ultrasound. Impression 1. covid-19 2. hypoxia 3. copd exacerbation" pt with finding as above copd exacerbation, resp failure, in setting of covid pneumonitis no obvious infiltrate on CXR CTA chest ordered to check for PE --> lovenox 1mg/kg x 1 dose given now pt also with elevated LFTs + hyperbilirubinemia --> no obvious abnl noted on abd US and CT and GI consultation recommendations given above. LFTs elevated could be d/t COVID pneumonitis and also d/t shock injury hepatitis panel ordered low bp, tachycardia, infection, elevated lactate --> sepsis findings CT abd/pelvis --> possible colitis on paxlovid, steroid, O2 via NC, decadron, rocephin, azithromycin, mvi, vit c, vit d, zinc supportive mgmt to be continued further orders per clinical course and pending primary team evaluation
[2022-08-31 01:30] LABS: CHOL/HDL RATIO 2.5 (<5.0); CHOLESTEROL 111 mg/dL; HDL CHOLESTEROL 44 mg/dL; LDL CHOLESTEROL,CALCULATED 50 mg/dL; LDL/HDL RATIO 1.1 (<3.6); TRIGLYCERIDES 86 mg/dL; VLDL CHOLESTEROL 17 mg/dL
[2022-08-31] MEDS: guaiFENesin 600 MG TABLET PO SCH ×3 (01:54→20:36)
[2022-08-31] MEDS: SODIUM CHLORIDE FLUSH 0.9% 10 ML SYRINGE IVP SCH ×3 (01:54→15:50)
[2022-08-31] MEDS ORDERED: ENOXAPARIN 100 MG/ML SYRINGE SUBQ ONE (02:00)
[2022-08-31] MEDS: AZITHROMYCIN INJ 500 MG in SODIUM CHLORIDE 0.9% 250 ML IV SCH (04:47)
[2022-08-31 05:57] LABS: BASOPHILS % (AUTO) 0.3 %; HCT - HEMATOCRIT 37.2 % (42.0-52.0); HGB - HEMOGLOBIN 12.1 g/dL (14.0-18.0); LYMPHOCYTES % (AUTO) 1.5 %; MEAN CORPUSCULAR HGB CONC 32.5 g/dL (32.0-36.0); MEAN CORPUSCULAR VOLUME 92.3 fL (80.0-94.0); MEAN PLATELET VOLUME 10.1 fL (7.4-11.4); MONOCYTES % (AUTO) 3.1 %; NEUTROPHILS % (AUTO) 83.8 %; PLT - PLATELET COUNT 126 10^3/uL (130-450); RED BLOOD COUNT 4.03 10^6/uL (4.70-6.10); RED CELL DISTRIBUTION WIDTH 13.4 % (12.0-15.0); WHITE BLOOD COUNT 27.3 x10^3/uL (4.8-10.8)
[2022-08-31] MEDS: cefTRIAXone 1 GM in SODIUM CHLORIDE 0.9% MINIBAG 100 ML IV SCH (05:59)
[2022-08-31] MEDS: SODIUM CHLORIDE 0.9% 1,000 ML IV SCH ×2 (06:02→15:50)
[2022-08-31 06:03] LABS: ABNORMAL LYMPHS % (MANUAL) 0 %
[2022-08-31] MEDS: BENZONATATE 100 MG CAPSULE PO PRN ×2 (06:09→15:47)
[2022-08-31 06:10] LABS: CALCIUM 7.8 mg/dL (8.5-10.3); CREATININE 1.6 mg/dL (0.6-1.2); MAGNESIUM 1.6 mg/dL (1.7-2.8); POTASSIUM 4.7 mmol/L (3.5-5.0)
[2022-08-31 06:16] LABS: BAND NEUTROPHILS % (MANUAL) 10 %; LYMPHOCYTES # (MANUAL) 0.8 10^3/uL (1.5-3.5); LYMPHOCYTES % (MANUAL) 3 %; METAMYELOCYTES % (MANUAL) 3 %; MONOCYTES # (MANUAL) 0.8 10^3/uL (0.0-1.0); MYELOCYTES % (MANUAL) 1 %; NEUTROPHILS # (MANUAL) 24.6 10^3/uL (1.5-6.6); RBC MORPHOLOGY (MULTIPLE) NORMAL APPEARANCE (NORMAL)
[2022-08-31 06:17] LABS: DIFFERENTIAL COMMENT MANUAL DIFFERENTIAL; PLATELET ESTIMATE, MANUAL DECREASED (<130,000) (NORMAL); PLATELET MORPHOLOGY NORMAL APPEARANCE (NORMAL); WBC MORPHOLOGY (MULTIPLE) NORMAL APPEARANCE (NORMAL)
[2022-08-31 06:43] LABS: GLUCOSE, URINE (UA) NEGATIVE (NEGATIVE); KETONES,URINE (UA) 15 mg/dL (NEGATIVE); LEUKOCYTE ESTERASE, URINE NEGATIVE (NEGATIVE); NITRITE,URINE NEGATIVE (NEGATIVE); OCCULT BLOOD,URINE NEGATIVE (NEGATIVE); PH,URINE 5.5 PH (5.0-7.5); UROBILINOGEN,URINE 0.2 (NORMAL) E.U./dL (NORMAL)
[2022-08-31 06:54] LABS: CLARITY,URINE CLEAR (CLEAR)
[2022-08-31 06:56] LABS: BILIRUBIN,URINE LARGE (NEGATIVE); ICTOTEST,URINE POSITIVE
[2022-08-31 07:06] LABS: RBC,URINE 0-5 /HPF (0-5); SQUAMOUS EPITHELIAL CELL,UR NONE SEEN (<= Few)
[2022-08-31 07:07] LABS: BACTERIA,URINE Moderate /HPF (None Seen)
[2022-08-31] MEDS ORDERED: ENOXAPARIN 40 MG/0.4 ML SYRINGE SUBQ SCH (09:00)
[2022-08-31] MEDS: MULTIVITAMIN TABLET PO SCH (09:31)
[2022-08-31] MEDS: dexAMETHasone 4 MG TABLET PO SCH (09:31)
[2022-08-31] MEDS: CHOLECALCIFEROL 400 UNIT TABLET PO SCH (09:31)
[2022-08-31] MEDS: ASCORBIC ACID 500 MG TABLET PO SCH (09:31)
[2022-08-31] MEDS: LACTOBACILLUS RHAMNOSUS GG CAPSULE PO SCH (09:31)
[2022-08-31] MEDS: ZINC SULFATE 220 MG CAPSULE PO SCH (09:31)
[2022-08-31] MEDS ORDERED: ONDANSETRON 4 MG/2 ML VIAL IVP PRN (11:35)
[2022-08-31 11:39] LABS: ESTIMATED AVERAGE GLUCOSE 100 mg/dL (70-100); HEMOGLOBIN A1c% 5.1 % (4.27-6.07)
[2022-08-31] MEDS ORDERED: guaiFENesin 600 MG TABLET PO ONE (11:40)
[2022-08-31] MEDS: IPRATROPIUM/ALBUTEROL 3 ML NEB INH PRN ×2 (12:02→16:33)
--- NOTE | 2022-08-31 14:30 | PHARMACY PROGRESS NOTE ---
- Best Possible Medication History Admit Date and Time: 08/31/22 0043 Processed by: Pharmacy Medication History completed: Yes Patient Interview: Completed Secondary Source(s): Spouse/Significant other, Physician records (hasn't been compliant with inhalers. last written on 07/30/21), Pharmacy records As the person ultimately responsible for medication therapy, providers are able to order a medication from an existing home medication list in [facility] via the "Reconcile Routine" prior to Confirmation of that medication by work station support specialist. Such practice is discouraged except when the physician, in their clinical judgment, deems that a medical need exists for a medication without regard to previous use.
[2022-08-31] MEDS ORDERED: PANTOPRAZOLE 40 MG TABLET ONE (15:38)
[2022-08-31] MEDS: PANTOPRAZOLE 40 MG TABLET PO SCH (15:48)
[2022-08-31] MEDS: CALCIUM CARBONATE CHEW 500 MG TABLET PO PRN (15:50)
[2022-08-31] MEDS ORDERED: traZODone 50 MG TABLET PO PRN (16:51)
--- NOTE | 2022-08-31 18:29 | PROVIDER PROGRESS NOTE ---
Subjective - Subjective Pt reports feeling: Improved Subjective: Pt was admitted overnight w/vomiting and shortness of breath, found to be COVID positive. He notes he is feeling quite a bit better today. He typically uses O2 at 2lpm. Here he has required 4lpm today. He has been having increased heartburn which is not typically an issue for him. He ate oatmeal at lunch but feels the heartburn will prevent him from eating anything for dinner. Objective - Vital Signs/Intake & Output Vital Signs: Vital Signs x48h Temp Pulse Pulse Resp BP Pulse Ox O2 Flow Rate 08/31/22 16:33 84 18 3 08/31/22 15:46 36.7 C 82 16 122/73 96 2 08/31/22 12:03 80 18 2 08/31/22 11:51 36.5 C 77 18 115/73 99 2 Intake & Output: Intake & Output 08/28/22 08/29/22 08/30/22 08/31/22 23:59 23:59 23:59 23:59 Intake Total 1999 2665.833 Output Total 550 Balance 19995.833 - Objective General Appearance: positive: No acute distress, Alert Eyes Bilateral: positive: Normal inspection, PERRL Respiratory: positive: Chest non-tender, No respiratory distress, Breath sounds nml Cardiovascular: positive: Regular rate & rhythm, No murmur, No gallop Abdomen: positive: Non-tender, No organomegaly, Nml bowel sounds, No distention Skin: positive: Color nml Extremities: positive: Non-tender, No pedal edema - Lab Results Fish Bones: 08/31/22 05:27 08/31/22 05:27 Other Labs: Lab Results x24hrs 08/31/22 08/31/22 08/31/22 Range/Units 06:15 05:27 05:27 WBC (4.8-10.8) x10^3/uL RBC (4.70-6.10) 10^6/uL Hgb (14.0-18.0) g/dL Hct (42.0-52.0) % MCV (80.0-94.0) fL MCH (27.0-31.0) pg MCHC (32.0-36.0) g/dL RDW (12.0-15.0) % Plt Count MPV (7.4-11.4) fL Neut # (Auto) (1.5-6.6) 10^3/uL Lymph # (Auto) (1.5-3.5) 10^3/uL Kimble # (Auto) (0.0-1.0) 10^3/uL Eos # (Auto) (0.0-0.7) 10^3/uL Baso # (Auto) (0.0-0.1) 10^3/uL Absolute Nucleated RBC x10^3/uL Total Counted Band Neuts % (Manual) (0 - 10) % Abnorm Lymph % (Manual) % Metamyelocytes % ( - 0) % Myelocytes % ( - 0) % Nucleated RBC % /100WBC Neutrophils # (Manual) (1.5-6.6) 10^3/uL Lymphocytes # (Manual) (1.5-3.5) 10^3/uL Monocytes # (Manual) (0.0-1.0) 10^3/uL Eosinophils # (Manual) (0-0.7) 10^3/uL Basophils # (Manual) (0-0.1) 10^3/uL Differential Comment WBC Morphology (NORMAL) Platelet Estimate (NORMAL) Platelet Morphology (NORMAL) RBC Morph Micro Appear (NORMAL) PT (9.9-12.6) secs INR (0.8-1.2) APTT (24.9-33.3) secs Sodium 137 (135-145) mmol/L Potassium 4.7 (3.5-5.0) mmol/L Chloride 103 (101-111) mmol/L Carbon Dioxide 21 (21-32) mmol/L Anion Gap 13.0 (6-13) BUN 20 (6-20) mg/dL Creatinine 1.6 H (0.6-1.2) mg/dL Estimated GFR (MDRD) 43 L (>89) Glucose 116 H (70-100) mg/dL Estimat Average Glucose 100 (70-100) mg/dL Hemoglobin A1c % 5.1 (4.27-6.07) % Lactic Acid (0.5-2.2) mmol/L Calcium 7.8 L (8.5-10.3) mg/dL Magnesium 1.6 L (1.7-2.8) mg/dL Total Bilirubin 6.0 H (0.2-1.0) mg/dL AST 121 H (10-42) IU/L ALT 144 H (10-60) IU/L Alkaline Phosphatase 76 (42-121) IU/L Troponin I High Sens (2.3-19.7) ng/L Total Protein 6.0 L (6.7-8.2) g/dL Albumin 3.0 L (3.2-5.5) g/dL Globulin 3.0 (2.1-4.2) g/dL Albumin/Globulin Ratio 1.0 (1.0-2.2) Triglycerides ( - 149) mg/dL Cholesterol ( - 199) mg/dL LDL Cholesterol, Calc ( - 129) mg/dL VLDL Cholesterol mg/dL HDL Cholesterol (60 - ) mg/dL LDL/HDL Ratio (<3.6) Cholesterol/HDL Ratio (<5.0) TSH (0.34-5.60) uIU/mL Urine Color DK. ORANGE Urine Clarity CLEAR (CLEAR) Urine pH 5.5 (5.0-7.5) PH Ur Specific Sterling 1.020 (1.002-1.030) Urine Protein (NEGATIVE) mg/dL Urine Glucose (UA) NEGATIVE (NEGATIVE) mg/dL Urine Ketones 15 H (NEGATIVE) mg/dL Urine Occult Blood NEGATIVE (NEGATIVE) Urine Nitrite NEGATIVE (NEGATIVE) Urine Bilirubin LARGE H (NEGATIVE) Urine Urobilinogen 0.2 (NORMAL) (NORMAL) E.U./dL Ur Leukocyte Esterase NEGATIVE (NEGATIVE) Urine RBC 0-5 (0-5) /HPF Urine WBC 11-25 H (0-3) /HPF Ur Squamous Epith Cells NONE SEEN (<= Few) Urine Bacteria Moderate H (None Seen) /HPF Ur Microscopic Review INDICATED Urine Culture Comments INDICATED Nasal Adenovirus (PCR) Nasal B. parapertussis DNA (PCR) Nasal Coronavir 229E PCR Nasal Coronavir HKU1 PCR Nasal Coronavir NL63 PCR Nasal Coronavir OC43 PCR Nasal Enterovir/Rhinovir PCR Nasal Influenza B PCR Nasal Influenza A PCR Nasal Parainfluen 1 PCR Nasal Parainfluen 2 PCR Nasal Parainfluen 3 PCR Nasal Parainfluen 4 PCR Nasal RSV (PCR) Nasal B.pertussis DNA PCR Nasal C.pneumoniae (PCR) Wilbert Human Metapneumo PCR Nasal M.pneumoniae (PCR) Nasal SARS-CoV-2 (PCR) 08/31/22 08/31/22 08/31/22 Range/Units 05:27 01:00 01:00 WBC 27.3 H (4.8-10.8) x10^3/uL RBC 4.03 L (4.70-6.10) 10^6/uL Hgb 12.1 L (14.0-18.0) g/dL Hct 37.2 L (42.0-52.0) % MCV 92.3 (80.0-94.0) fL MCH 30.0 (27.0-31.0) pg MCHC 32.5 (32.0-36.0) g/dL RDW 13.4 (12.0-15.0) % Plt Count 126 L MPV 10.1 (7.4-11.4) fL Neut # (Auto) Not Reportable (1.5-6.6) 10^3/uL Lymph # (Auto) Not Reportable (1.5-3.5) 10^3/uL Kimble # (Auto) Not Reportable (0.0-1.0) 10^3/uL Eos # (Auto) Not Reportable (0.0-0.7) 10^3/uL Baso # (Auto) Not Reportable (0.0-0.1) 10^3/uL Absolute Nucleated RBC Not Reportable x10^3/uL Total Counted 100 Band Neuts % (Manual) 10 (0 - 10) % Abnorm Lymph % (Manual) 0 % Metamyelocytes % 3 H ( - 0) % Myelocytes % 1 H ( - 0) % Nucleated RBC % Not Reportable /100WBC Neutrophils # (Manual) 24.6 H (1.5-6.6) 10^3/uL Lymphocytes # (Manual) 0.8 L (1.5-3.5) 10^3/uL Monocytes # (Manual) 0.8 (0.0-1.0) 10^3/uL Eosinophils # (Manual) 0.0 (0-0.7) 10^3/uL Basophils # (Manual) 0.0 (0-0.1) 10^3/uL Differential Comment MANUAL DIFFERENTIAL WBC Morphology NORMAL APPEARANCE (NORMAL) Platelet Estimate DECREASED (<130,000) (NORMAL) Platelet Morphology NORMAL APPEARANCE (NORMAL) RBC Morph Micro Appear NORMAL APPEARANCE (NORMAL) PT (9.9-12.6) secs INR (0.8-1.2) APTT (24.9-33.3) secs Sodium (135-145) mmol/L Potassium (3.5-5.0) mmol/L Chloride (101-111) mmol/L Carbon Dioxide (21-32) mmol/L Anion Gap (6-13) BUN (6-20) mg/dL Creatinine (0.6-1.2) mg/dL Estimated GFR (MDRD) (>89) Glucose (70-100) mg/dL Estimat Average Glucose (70-100) mg/dL Hemoglobin A1c % (4.27-6.07) % Lactic Acid (0.5-2.2) mmol/L Calcium (8.5-10.3) mg/dL Magnesium (1.7-2.8) mg/dL Total Bilirubin (0.2-1.0) mg/dL AST (10-42) IU/L ALT (10-60) IU/L Alkaline Phosphatase (42-121) IU/L Troponin I High Sens (2.3-19.7) ng/L Total Protein (6.7-8.2) g/dL Albumin (3.2-5.5) g/dL Globulin (2.1-4.2) g/dL Albumin/Globulin Ratio (1.0-2.2) Triglycerides 86 ( - 149) mg/dL Cholesterol 111 ( - 199) mg/dL LDL Cholesterol, Calc 50 ( - 129) mg/dL VLDL Cholesterol 17 mg/dL HDL Cholesterol 44 L (60 - ) mg/dL LDL/HDL Ratio 1.1 (<3.6) Cholesterol/HDL Ratio 2.5 (<5.0) TSH 1.07 (0.34-5.60) uIU/mL Urine Color Urine Clarity (CLEAR) Urine pH (5.0-7.5) PH Ur Specific Sterling (1.002-1.030) Urine Protein (NEGATIVE) mg/dL Urine Glucose (UA) (NEGATIVE) mg/dL Urine Ketones (NEGATIVE) mg/dL Urine Occult Blood (NEGATIVE) Urine Nitrite (NEGATIVE) Urine Bilirubin (NEGATIVE) Urine Urobilinogen (NORMAL) E.U./dL Ur Leukocyte Esterase (NEGATIVE) Urine RBC (0-5) /HPF Urine WBC (0-3) /HPF Ur Squamous Epith Cells (<= Few) Urine Bacteria (None Seen) /HPF Ur Microscopic Review Urine Culture Comments Nasal Adenovirus (PCR) Nasal B. parapertussis DNA (PCR) Nasal Coronavir 229E PCR Nasal Coronavir HKU1 PCR Nasal Coronavir NL63 PCR Nasal Coronavir OC43 PCR Nasal Enterovir/Rhinovir PCR Nasal Influenza B PCR Nasal Influenza A PCR Nasal Parainfluen 1 PCR Nasal Parainfluen 2 PCR Nasal Parainfluen 3 PCR Nasal Parainfluen 4 PCR Nasal RSV (PCR) Nasal B.pertussis DNA PCR Nasal C.pneumoniae (PCR) Wilbert Human Metapneumo PCR Nasal M.pneumoniae (PCR) Nasal SARS-CoV-2 (PCR) 08/31/22 08/30/22 08/30/22 Range/Units 01:00 22:54 22:23 WBC (4.8-10.8) x10^3/uL RBC (4.70-6.10) 10^6/uL Hgb (14.0-18.0) g/dL Hct (42.0-52.0) % MCV (80.0-94.0) fL MCH (27.0-31.0) pg MCHC (32.0-36.0) g/dL RDW (12.0-15.0) % Plt Count MPV (7.4-11.4) fL Neut # (Auto) (1.5-6.6) 10^3/uL Lymph # (Auto) (1.5-3.5) 10^3/uL Kimble # (Auto) (0.0-1.0) 10^3/uL Eos # (Auto) (0.0-0.7) 10^3/uL Baso # (Auto) (0.0-0.1) 10^3/uL Absolute Nucleated RBC x10^3/uL Total Counted Band Neuts % (Manual) (0 - 10) % Abnorm Lymph % (Manual) % Metamyelocytes % ( - 0) % Myelocytes % ( - 0) % Nucleated RBC % /100WBC Neutrophils # (Manual) (1.5-6.6) 10^3/uL Lymphocytes # (Manual) (1.5-3.5) 10^3/uL Monocytes # (Manual) (0.0-1.0) 10^3/uL Eosinophils # (Manual) (0-0.7) 10^3/uL Basophils # (Manual) (0-0.1) 10^3/uL Differential Comment WBC Morphology (NORMAL) Platelet Estimate (NORMAL) Platelet Morphology (NORMAL) RBC Morph Micro Appear (NORMAL) PT 17.1 H (9.9-12.6) secs INR 1.6 H (0.8-1.2) APTT 33.6 H (24.9-33.3) secs Sodium (135-145) mmol/L Potassium (3.5-5.0) mmol/L Chloride (101-111) mmol/L Carbon Dioxide (21-32) mmol/L Anion Gap (6-13) BUN (6-20) mg/dL Creatinine (0.6-1.2) mg/dL Estimated GFR (MDRD) (>89) Glucose (70-100) mg/dL Estimat Average Glucose (70-100) mg/dL Hemoglobin A1c % (4.27-6.07) % Lactic Acid 3.2 H* (0.5-2.2) mmol/L Calcium (8.5-10.3) mg/dL Magnesium (1.7-2.8) mg/dL Total Bilirubin (0.2-1.0) mg/dL AST (10-42) IU/L ALT (10-60) IU/L Alkaline Phosphatase (42-121) IU/L Troponin I High Sens 18.2 (2.3-19.7) ng/L Total Protein (6.7-8.2) g/dL Albumin (3.2-5.5) g/dL Globulin (2.1-4.2) g/dL Albumin/Globulin Ratio (1.0-2.2) Triglycerides ( - 149) mg/dL Cholesterol ( - 199) mg/dL LDL Cholesterol, Calc ( - 129) mg/dL VLDL Cholesterol mg/dL HDL Cholesterol (60 - ) mg/dL LDL/HDL Ratio (<3.6) Cholesterol/HDL Ratio (<5.0) TSH (0.34-5.60) uIU/mL Urine Color Urine Clarity (CLEAR) Urine pH (5.0-7.5) PH Ur Specific Sterling (1.002-1.030) Urine Protein (NEGATIVE) mg/dL Urine Glucose (UA) (NEGATIVE) mg/dL Urine Ketones (NEGATIVE) mg/dL Urine Occult Blood (NEGATIVE) Urine Nitrite (NEGATIVE) Urine Bilirubin (NEGATIVE) Urine Urobilinogen (NORMAL) E.U./dL Ur Leukocyte Esterase (NEGATIVE) Urine RBC (0-5) /HPF Urine WBC (0-3) /HPF Ur Squamous Epith Cells (<= Few) Urine Bacteria (None Seen) /HPF Ur Microscopic Review Urine Culture Comments Nasal Adenovirus (PCR) Nasal B. parapertussis DNA (PCR) Nasal Coronavir 229E PCR Nasal Coronavir HKU1 PCR Nasal Coronavir NL63 PCR Nasal Coronavir OC43 PCR Nasal Enterovir/Rhinovir PCR Nasal Influenza B PCR Nasal Influenza A PCR Nasal Parainfluen 1 PCR Nasal Parainfluen 2 PCR Nasal Parainfluen 3 PCR Nasal Parainfluen 4 PCR Nasal RSV (PCR) Nasal B.pertussis DNA PCR Nasal C.pneumoniae (PCR) Wilbert Human Metapneumo PCR Nasal M.pneumoniae (PCR) Nasal SARS-CoV-2 (PCR) 08/30/22 08/30/22 Range/Units 20:15 18:09 WBC 11.2 H (4.8-10.8) x10^3/uL RBC 5.01 (4.70-6.10) 10^6/uL Hgb 15.2 (14.0-18.0) g/dL Hct 45.7 (42.0-52.0) % MCV 91.2 (80.0-94.0) fL MCH 30.3 (27.0-31.0) pg MCHC 33.3 (32.0-36.0) g/dL RDW 13.0 (12.0-15.0) % Plt Count TNP MPV 9.5 (7.4-11.4) fL Neut # (Auto) 10.2 H (1.5-6.6) 10^3/uL Lymph # (Auto) 0.2 L (1.5-3.5) 10^3/uL Kimble # (Auto) 0.1 (0.0-1.0) 10^3/uL Eos # (Auto) 0.6 (0.0-0.7) 10^3/uL Baso # (Auto) 0.0 (0.0-0.1) 10^3/uL Absolute Nucleated RBC 0.00 x10^3/uL Total Counted Band Neuts % (Manual) (0 - 10) % Abnorm Lymph % (Manual) % Metamyelocytes % ( - 0) % Myelocytes % ( - 0) % Nucleated RBC % 0.0 /100WBC Neutrophils # (Manual) (1.5-6.6) 10^3/uL Lymphocytes # (Manual) (1.5-3.5) 10^3/uL Monocytes # (Manual) (0.0-1.0) 10^3/uL Eosinophils # (Manual) (0-0.7) 10^3/uL Basophils # (Manual) (0-0.1) 10^3/uL Differential Comment WBC Morphology (NORMAL) Platelet Estimate NORMAL (130-450,000) (NORMAL) Platelet Morphology PLATELET CLUMPING (NORMAL) RBC Morph Micro Appear (NORMAL) PT (9.9-12.6) secs INR (0.8-1.2) APTT (24.9-33.3) secs Sodium (135-145) mmol/L Potassium (3.5-5.0) mmol/L Chloride (101-111) mmol/L Carbon Dioxide (21-32) mmol/L Anion Gap (6-13) BUN (6-20) mg/dL Creatinine (0.6-1.2) mg/dL Estimated GFR (MDRD) (>89) Glucose (70-100) mg/dL Estimat Average Glucose (70-100) mg/dL Hemoglobin A1c % (4.27-6.07) % Lactic Acid (0.5-2.2) mmol/L Calcium (8.5-10.3) mg/dL Magnesium (1.7-2.8) mg/dL Total Bilirubin (0.2-1.0) mg/dL AST (10-42) IU/L ALT (10-60) IU/L Alkaline Phosphatase (42-121) IU/L Troponin I High Sens (2.3-19.7) ng/L Total Protein (6.7-8.2) g/dL Albumin (3.2-5.5) g/dL Globulin (2.1-4.2) g/dL Albumin/Globulin Ratio (1.0-2.2) Triglycerides ( - 149) mg/dL Cholesterol ( - 199) mg/dL LDL Cholesterol, Calc ( - 129) mg/dL VLDL Cholesterol mg/dL HDL Cholesterol (60 - ) mg/dL LDL/HDL Ratio (<3.6) Cholesterol/HDL Ratio (<5.0) TSH (0.34-5.60) uIU/mL Urine Color Urine Clarity (CLEAR) Urine pH (5.0-7.5) PH Ur Specific Sterling (1.002-1.030) Urine Protein (NEGATIVE) mg/dL Urine Glucose (UA) (NEGATIVE) mg/dL Urine Ketones (NEGATIVE) mg/dL Urine Occult Blood (NEGATIVE) Urine Nitrite (NEGATIVE) Urine Bilirubin (NEGATIVE) Urine Urobilinogen (NORMAL) E.U./dL Ur Leukocyte Esterase (NEGATIVE) Urine RBC (0-5) /HPF Urine WBC (0-3) /HPF Ur Squamous Epith Cells (<= Few) Urine Bacteria (None Seen) /HPF Ur Microscopic Review Urine Culture Comments Nasal Adenovirus (PCR) NOT DETECTED Nasal B. parapertussis DNA (PCR) NOT DETECTED Nasal Coronavir 229E PCR NOT DETECTED Nasal Coronavir HKU1 PCR NOT DETECTED Nasal Coronavir NL63 PCR NOT DETECTED Nasal Coronavir OC43 PCR NOT DETECTED Nasal Enterovir/Rhinovir PCR NOT DETECTED Nasal Influenza B PCR NOT DETECTED Nasal Influenza A PCR NOT DETECTED Nasal Parainfluen 1 PCR NOT DETECTED Nasal Parainfluen 2 PCR NOT DETECTED Nasal Parainfluen 3 PCR NOT DETECTED Nasal Parainfluen 4 PCR NOT DETECTED Nasal RSV (PCR) NOT DETECTED Nasal B.pertussis DNA PCR NOT DETECTED Nasal C.pneumoniae (PCR) NOT DETECTED Wilbert Human Metapneumo PCR NOT DETECTED Nasal M.pneumoniae (PCR) NOT DETECTED Nasal SARS-CoV-2 (PCR) DETECTED A Assessment/Plan - Problem List (1) COVID Impression: Improved today. Continues on dexamethasone. Sxs have been present since mid- Jul. No indication for antiviral agents. Paxlovid was ordered but not stocked inpatient. He remains stable overall. Add PPI and tums for heartburn sxs. (2) COPD exacerbation Impression: Add duonebs PRN. O2 need up somewhat from baseline of 2lpm. Will wean as able. Increase mucinex to 1200 BID per pt request. (3) Hyperbilirubinemia Impression: Elevated LFTs likely d/t COVID. CT done this am that shows no obstructive process. There is borderline extrahepatic biliary ductal dilatation, possibly reflecting sequelae of prior brenna. LFTs are improving. (4) Colitis Impression: Possibly caused by covid. Improving. Continue symptomatic care. (5) Leukocytosis Impression: WBC up from 11.2 to 27.3. Possible increased d/t steroids. Will monitor. (7) On deep vein thrombosis (DVT) prophylaxis Impression: Continue Lovenox
[2022-09-01] MEDS: SODIUM CHLORIDE FLUSH 0.9% 10 ML SYRINGE IVP SCH ×2 (00:47→09:23)
[2022-09-01] MEDS: CALCIUM CARBONATE CHEW 500 MG TABLET PO PRN ×2 (01:22→09:26)
[2022-09-01] MEDS: SODIUM CHLORIDE 0.9% 1,000 ML IV SCH ×2 (01:22→09:20)
[2022-09-01] MEDS: ALBUTEROL NEB 2.5 MG/3 ML INH PRN ×2 (01:50→10:29)
[2022-09-01 04:09] LABS: HBsAG SCREEN Negative (Negative); HCV AB <0.1 s/co ratio (0.0-0.9); HEPATITIS B CORE IGM AB Negative (Negative)
[2022-09-01] MEDS: AZITHROMYCIN INJ 500 MG in SODIUM CHLORIDE 0.9% 250 ML IV SCH (05:07)
[2022-09-01 05:35] LABS: BASOPHILS % (AUTO) 0.3 %; EOSINOPHILS % (AUTO) 8.6 %; HCT - HEMATOCRIT 34.7 % (42.0-52.0); HGB - HEMOGLOBIN 11.7 g/dL (14.0-18.0); LYMPHOCYTES % (AUTO) 3.1 %; MEAN CORPUSCULAR HEMOGLOBIN 30.9 pg (27.0-31.0); MEAN CORPUSCULAR HGB CONC 33.7 g/dL (32.0-36.0); MEAN CORPUSCULAR VOLUME 91.6 fL (80.0-94.0); MEAN PLATELET VOLUME 10.2 fL (7.4-11.4); NEUTROPHILS % (AUTO) 68.9 %; PLT - PLATELET COUNT 139 10^3/uL (130-450); RED BLOOD COUNT 3.79 10^6/uL (4.70-6.10); RED CELL DISTRIBUTION WIDTH 13.4 % (12.0-15.0); WHITE BLOOD COUNT 26.3 x10^3/uL (4.8-10.8)
[2022-09-01 05:47] LABS: ABNORMAL LYMPHS % (MANUAL) 0 %
[2022-09-01 05:52] LABS: ALBUMIN 2.9 g/dL (3.2-5.5); ALBUMIN/GLOBULIN RATIO 0.8 (1.0-2.2); BILIRUBIN,TOTAL 3.1 mg/dL (0.2-1.0); CALCIUM 7.8 mg/dL (8.5-10.3); CREATININE 0.9 mg/dL (0.6-1.2); POTASSIUM 4.2 mmol/L (3.5-5.0); TOTAL PROTEIN 6.5 g/dL (6.7-8.2)
[2022-09-01] MEDS: PANTOPRAZOLE 40 MG TABLET PO SCH (05:53)
[2022-09-01 06:15] LABS: BAND NEUTROPHILS % (MANUAL) 4 %; LYMPHOCYTES # (MANUAL) 0.8 10^3/uL (1.5-3.5); LYMPHOCYTES % (MANUAL) 3 %; METAMYELOCYTES % (MANUAL) 1 %; MONOCYTES # (MANUAL) 1.3 10^3/uL (0.0-1.0); NEUTROPHILS # (MANUAL) 23.9 10^3/uL (1.5-6.6)
[2022-09-01 06:16] LABS: DIFFERENTIAL COMMENT MANUAL DIFFERENTIAL; PLATELET ESTIMATE, MANUAL DECREASED (<130,000) (NORMAL); PLATELET MORPHOLOGY NORMAL APPEARANCE (NORMAL); RBC MORPHOLOGY (MULTIPLE) NORMAL APPEARANCE (NORMAL); WBC MORPHOLOGY (MULTIPLE) NORMAL APPEARANCE (NORMAL)
[2022-09-01] MEDS: cefTRIAXone 1 GM in SODIUM CHLORIDE 0.9% MINIBAG 100 ML IV SCH (06:21)
[2022-09-01] MEDS ORDERED: IPRATROPIUM 0.2 MG/ML NEB INH SCH (07:00)
[2022-09-01 08:49] VITALS: BP 129/86
[2022-09-01] MEDS ORDERED: ENOXAPARIN 40 MG/0.4 ML SYRINGE SUBQ SCH (09:00)
[2022-09-01] MEDS: MULTIVITAMIN TABLET PO SCH (09:21)
[2022-09-01] MEDS: dexAMETHasone 4 MG TABLET PO SCH (09:21)
[2022-09-01] MEDS: CHOLECALCIFEROL 400 UNIT TABLET PO SCH (09:21)
[2022-09-01] MEDS: ASCORBIC ACID 500 MG TABLET PO SCH (09:21)
[2022-09-01] MEDS: guaiFENesin 600 MG TABLET PO SCH (09:22)
[2022-09-01] MEDS: LACTOBACILLUS RHAMNOSUS GG CAPSULE PO SCH (09:23)
[2022-09-01] MEDS: ZINC SULFATE 220 MG CAPSULE PO SCH (09:24)
--- NOTE | 2022-09-01 11:26 | Discharge Plan ---
Discharge Plan Problem Reviewed?: Yes Disposition: Home, Self Care Condition: Stable Prescriptions: Ipratropium/Albuterol [Duoneb] 3 ml INH RTQID PRN #1 ea PRN Reason: Shortness Of Air/Wheezing levoFLOXacin [Levaquin] 500 mg PO QD #10 tablet methylPREDNISolone [Medrol Dose Pack] 1 each PO UD 6 Days #1 each Diet: Cardiac Activity Restrictions: Activity as Tolerated Shower Restrictions: No Driving Restrictions: No Health Concerns: You came to the emergency room knowing that you had COVID with testing at home. And you thought you are doing better but you started having nausea, vomiting, and the diarrhea just wiped you out. It seemed to drain you and make your shortness of breath worse. You came to the emergency room and had to spend a day and a half in the emergency room waiting for a bed. They treated you as emphysema exacerbation with antibiotics, steroids. You came down to your baseline oxygen of 2 L. He worked as short of breath. Your diarrhea had stopped. And you were able to keep food down. We are trying a new breathing treatment on few. You say that the handheld inhaler that you use really does not help at all. But that the DuoNeb we gave you in the hospital helped a lot. Plan of Treatment: 1. Please see your primary care provider, Dr. Napoles, in the next 1 to 2 weeks for follow-up. 1 to make sure that your lungs are staying stable and that your potassium is fine and that you are not dehydrated. 2. We are stopping the albuterol handheld inhaler. We are changing it to albuterol/ipratropium nebulizer solution every 4-6 hours. When you take ipratropium, you cannot take Spiriva. As such we are stopping your Spiriva. Continue the Advair. I am also sending you home on a powerful steroid to reduce the amount of inflammation that you get with emphysema exacerbation. It is a tapering dose of medicine. You will be off of it in 6 days. 3. We will continue antibiotics for a few more days. Those are Levaquin, 250 mg tablets, 2 tablets once a day, for 5 days. 4. Because antibiotics can give you diarrhea, and you just finished having diarrhea, take a probiotic that is [id number] daily. You can take Lomotil as needed. 5. The new nebulizer solution causes your heart rate to be fast. You can actually get up to 150 heart beats a minute. But you are insistent that you feel fine with this. You do not want to stay another day. Just let your doctor know that your heart rate seems to be higher with the new breathing machine medication. Care Goals: To have stable emphysema. And to get home to your dogs. Assessment: Patient and are at the room at discharge. They are adamant that he is at [facility]. They really feel strongly that he is fine to go home. No Smoking: If you smoke, Please STOP! Call for help. Follow-up with: Bonnie Napoles MD [Primary Care Provider] -
--- NOTE | 2022-09-01 11:40 | DISCHARGE SUMMARY ---
Discharge Summary Admit Date: 08/31/22 Discharge Date: 09/01/22 Discharging Provider: Khushboo Hodge MD Primary Care Provider: MD Sloane Code Status: Attempt Resuscitation Condition at Discharge: Stable Discharge Disposition: 01 Home, Self Care - DIAGNOSES Discharge Diagnoses with Status of Each Condition: 1. COPD with exacerbation. 2. Acute on chronic respiratory failure with hypoxia 3. COVID-positive status 4. Hyperbilirubinemia 5. Elevated liver enzymes 6. Mild colitis 7. Leukocytosis secondary to steroids 8. Acute on chronic kidney injury. 9. Hyperglycemia secondary to steroids - HPI History of Present Illness: Patient was initially seen in the emergency room August 30. We had no beds. We were finally able to admit him August 31. "Patient is a 72-year-old male who presents to the emergency department with vomiting and difficulty breathing. History of COPD, he uses oxygen at home. He states he feels like he has food poisoning after eating molded oranges last night. Complains of abdominal cramping diffusely. He has had a cholecystectomy in the past. Nothing makes it better or worse. Patient states that he is usually on 2 L of oxygen at home. He states his entire family has been sick with COVID. He took a home COVID test which was negative. He has had fevers and chills. No measured fevers." "Patient is a 72-year-old male with COPD, exacerbation of underlying COPD as well as positive for COVID. He usually uses 2 L of home O2 but drops quickly down to the mid 80s oxygen saturation on 2 L even lying in bed. Therefore he was increased to 4 L on an oxygen mask. Patient feels better and is satting in the mid 90s. He was given IV Solu-Medrol, DuoNeb treatment. He also has elevation of his liver function tests and bilirubin. Ultrasound does not show any acute abnormalities other than fatty liver. Has had his gallbladder removed. There is no biliary ductal dilatation to suggest obstructed stone. Acute hepatitis panel was sent. Patient will need to be admitted for further care for COPD exacerbation and COVID. LFTs to be rechecked tomorrow." "patient endorsed to me by Dr. Orona awaiting GI consult. Just before leaving shift, Dr. Orona was actually was able to talk with Dr. Wagoner, [facility] who states LFT elevation is likely attributable to viral infection (covid) and MRCP is not necessary given hx of cholecystectomy and CBD not dilated on ultrasound. Impression 1. covid-19 2. hypoxia 3. copd exacerbation" - CONSULTS | PROCEDURES Procedures: 1. Abdominal ultrasound shows increased liver echogenicity, nonspecific, most commonly attributed to fatty infiltration. Status postcholecystectomy without biliary dilatation. 2. Chest x-ray without acute cardiopulmonary disease and findings compatible with chronic obstructive lung disease. 3. Abdomen pelvis CT with no liver masses. No intrahepatic biliary dilatation. Common bile duct 0.7 cm. Stomach and bowel unremarkable with only mild colonic wall thickness within the ascending and sigmoid colon. Diverticulosis without colitis. Borderline extrahepatic biliary dilatation may reflect sequela of prior cholecystectomy. 4. Blood cultures negative after 1 day 5. Urine culture no growth - HOSPITAL COURSE Hospital Course: The patient responded very quickly after an overnight stay. He was placed in observation was given azithromycin IV, ceftriaxone IV, Decadron p.o. He was switched over to nebulized solutions as opposed to handheld inhalers. He rebounded much quicker than we thought he was going to and by discharge was back on his home oxygen of 2 L/min. He was getting continue with Decadron tapering Dosepak in the outpatient setting. Antibiotics were to be completed with Levaquin as opposed to IV azithromycin and Rocephin. Diarrhea had resolved and he was eating his food. His main complaint at discharge consisted of indigestion. He usually takes omeprazole and Tums at home.. But here Protonix and Tums was not doing it. He wanted to take a teaspoon of bicarbonate the way he usually does at home. Because he was back to baseline oxygen, shortness of breath was stable, And diarrhea had resolved, he really wanted to get home to his dogs. That was his main concern. Creatinine had gone up to 1.6 with his dehydration and was back down to baseline of 0.9 at discharge. He had some mild hyperglycemia due to steroids. We made sure that it was steroids inducing this and an A1c was 5.1%. was in the room. She endorsed that he was back to baseline. Both of them really were adamant that he was fine to go home. Temperature was 36.4. Heart rate 85. Sometimes his heart rate would go to 150 after an albuterol treatment. During that he was completely asymptomatic, without shortness of breath, without diaphoresis. Without increased respiratory effort. Blood pressure 129/86. Respirations 20. 2 L nasal cannula oxygenating at 94%. He is a very pleasant elderly gentleman, low hoarse voice, hoarse laugh. 6 foot tall, 77 kg. Slightly protuberant belly, but no respiratory distress, no use of accessory muscles. Prolonged and exhalation phase but no wheezing. A tachycardic regular rate and rhythm. Abdomen is obese, soft, nontender. Extremities without edema. He is able to get up and walk around the room without any increased respiratory effort. Because he like the nebulizer solution much better than handheld inhaler we switched him over to DuoNeb. We stopped the Spiriva. We stopped handheld DuoNeb. But we continue the Advair. The patient is very adamant that he takes Advair. But it is not on his ambulatory order module that is reconciled by pharmacy. He is to finish taking Levaquin. He has had 2 days of Rocephin and azithromycin. I will switch him over to empiric Levaquin for 500 mg a day for 5 days. I told him to make sure he takes an [id number] probiotic as well as Lomotil. The previous hospitalist states that his rise in liver enzymes most most likely due to COVID. ERCP was not needed. Total bili went from 6-3.1 at discharge. AST was 121 and was 72 at discharge. ALT was 144 and 116 at discharge. We would asked that the primary care provider recheck those liver enzymes in their office. A cholesterol panel was done by the previous hospitalist. Triglycerides were 86, cholesterol 111, LDL 50, HDL 44. Greater than 30 minutes was spent coordinating discharge - ALLERGIES Allergies/Adverse Reactions: Allergies Allergy/AdvReac Type Severity Reaction Status Date / Time No Known Drug Allergies Allergy Verified 09/02/22 15:05 - MEDICATIONS Home Medications: Ambulatory Orders Medication Instructions Recorded Confirmed Benzonatate 1 cap PO TID 08/31/22 08/31/22 Omeprazole 40 mg PO DAILY PRN 08/31/22 08/31/22 guaiFENesin [Mucus ER] 1,200 mg PO BID 08/31/22 08/31/22 Ipratropium/Albuterol [Duoneb] 3 ml INH RTQID PRN #1 ea 09/01/22 levoFLOXacin [Levaquin] 500 mg PO QD #10 tablet 09/01/22 methylPREDNISolone [Medrol Dose 1 each PO UD 6 Days #1 each 09/01/22 Pack] Levalbuterol [Xopenex] 1 puffs INH Q4-6H PRN #15 gm 09/02/22 Levalbuterol [Xopenex] 1.25 mg INH RTQ4H PRN #30 ea 09/02/22 - LABS Result Diagrams: 09/01/22 05:25 09/01/22 05:25
--- NOTE | 2022-09-07 07:13 | HISTORY & PHYSICAL EXAMINATION ---
Chief Complaint - Chief Complaint Chief Complaint: abd pain + sob History of Present Illness - History of Present Illness HPI Comment/Other: pt with progressive SOB + abd cramping over past 1-2 days. he ate some moldy oranges and feels that they may be causing some abdominal cramping. he has h/o COPD and has multiple family members who had COVID. home COVID test NEG. he does report nausea and vomiting. h/o cholecystectomy. no chest pain. no AMS. reports subjective fevers and chills. History - Past Medical History Cardiovascular: reports: None Respiratory: reports: COPD, Emphysema Endocrine/Autoimmune: reports: None GI: reports: None : reports: None HEENT: reports: Chronic hearing loss Psych: reports: None Musculoskeletal: reports: None Derm: reports: None MRSA Hx?: No - Past Surgical History General: reports: Cholecystectomy HEENT: reports: Cataracts - POLST Patient has POLST: No Meds/Allgy - Home Medications Home Medications: Ambulatory Orders Medication Instructions Recorded Confirmed Benzonatate 1 cap PO TID 08/31/22 08/31/22 Omeprazole 40 mg PO DAILY PRN 08/31/22 08/31/22 guaiFENesin [Mucus ER] 1,200 mg PO BID 08/31/22 08/31/22 Ipratropium/Albuterol [Duoneb] 3 ml INH RTQID PRN #1 ea 09/01/22 levoFLOXacin [Levaquin] 500 mg PO QD #10 tablet 09/01/22 methylPREDNISolone [Medrol Dose 1 each PO UD 6 Days #1 each 09/01/22 Pack] Levalbuterol [Xopenex] 1 puffs INH Q4-6H PRN #15 gm 09/02/22 Levalbuterol [Xopenex] 1.25 mg INH RTQ4H PRN #30 ea 09/02/22 - Allergies Allergies/Adverse Reactions: Allergies Allergy/AdvReac Type Severity Reaction Status Date / Time No Known Drug Allergies Allergy Verified 09/02/22 15:05 Review of Systems - Other Findings Other Findings: pt not seen on video - please refer to ED notes Exam - Physical Exam Comments/Other: pt not seen on video - please refer to ED notes Conclusion/Plan - Lab Results Fish Bones: 09/01/22 05:25 09/01/22 05:25 - Other Other Results/Comments: pt with - copd exacerbation, resp failure, in setting of covid pneumonitis no obvious infiltrate on CXR CTA chest ordered to check for PE --> lovenox 1mg/kg x 1 dose given now pt also with elevated LFTs + hyperbilirubinemia --> no obvious abnl noted on abd US and CT and GI consultation recommendations given above. LFTs elevated could be d/t COVID pneumonitis and also d/t shock injury hepatitis panel ordered low bp, tachycardia, infection, elevated lactate --> sepsis findings CT abd/pelvis --> possible colitis on paxlovid, steroid, O2 via NC, decadron, rocephin, azithromycin, mvi, vit c, vit d, zinc supportive mgmt to be continued further orders per clinical course and pending primary team evaluation Telemedicine Consult Details - Provider Location & Consult Time Telemedicine consultation conducted via videoconferencing?: Yes (based on Aug 30- 2022 discussion with ED)
== END 2022-09-01 11:55 | disposition home or self-care (01) | DRG 177 ==
LOC: ED 16:57 → MS2 08-31 00:43
PROVIDERS: ADMIT Student in an Organized Health Care Education/Training Program; ATTEND Specialist
PROC: 3E0DX3Z Introduction of Anti-inflammatory into Mouth and Pharynx, External Approach (ICD-10-PCS; principal; 2022-08-30)
DX: U07.1 COVID-19 (principal); J12.82 Pneumonia due to coronavirus disease 2019; J96.21 Acute and chronic respiratory failure with hypoxia; R09.02 Hypoxemia; I95.9 Hypotension, unspecified; N17.9 Acute kidney failure, unspecified; K76.0 Fatty (change of) liver, not elsewhere classified; J43.9 Emphysema, unspecified; E80.6 Other disorders of bilirubin metabolism; R74.8 Abnormal levels of other serum enzymes; K52.9 Noninfective gastroenteritis and colitis, unspecified; D72.829 Elevated white blood cell count, unspecified; T38.0X5A Adverse effect of glucocorticoids and synthetic analogues, initial encounter; N18.9 Chronic kidney disease, unspecified; R73.9 Hyperglycemia, unspecified; R00.0 Tachycardia, unspecified; R19.7 Diarrhea, unspecified; R12 Heartburn; Z99.81 Dependence on supplemental oxygen; Z90.49 Acquired absence of other specified parts of digestive tract
CPT/HCPCS: 36415; 71045; 74177; 76705; 80053; 80061; 81001; 83036; 83605; 83690; 83735; 84443; 84484; 85025; 85610; 85730; 86705; 86709; 86803; 87040; 87086; 87340; 87633; 94640; 94664; 96361; 96374; 96375; 99284; 99285; A9270; J1650; J8540; Q9967; 81003; 83721

== ENCOUNTER 2022-09-02 14:56 | Emergency (ER) | payer MEDICARE ==
--- NOTE | 2022-09-02 15:59 | XRAY Report ---
PROCEDURE: Chest 1 View X-Ray INDICATIONS: chest pain, covid TECHNIQUE: One view of the chest was acquired. COMPARISON: Chest x-ray 08/30/2022 FINDINGS: Surgical changes and devices: None. Lungs and pleura: No pleural effusions or pneumothorax. Lungs are clear. Mediastinum: Mediastinal contours appear normal. Heart size is normal. Bones and chest wall: No suspicious bony lesions. Overlying soft tissues appear unremarkable. IMPRESSION: No acute pulmonary process. Reviewed by: Susanna Rain MD on 09/02/2022 3:58 PM PST Approved by: Susanna Rain MD on 09/02/2022 3:58 PM PST Station ID: [id number]
[2022-09-02 16:06] LABS: CALCIUM 8.6 mg/dL (8.5-10.3); POTASSIUM 4.5 mmol/L (3.5-5.0)
--- NOTE | 2022-09-02 16:06 | ED Physician Documentation ---
PD HPI URI - Stated complaint Stated Complaint: HIGH HR - Chief complaint Chief Complaint: Cardiac - History obtained from History obtained from: Patient PD PAST MEDICAL HISTORY - Past Medical History Cardiovascular: None Respiratory: COPD, Emphysema Endocrine/Autoimmune: None GI: None : None HEENT: Chronic hearing loss Psych: None Musculoskeletal: None Derm: None - Past Surgical History Past Surgical History: No General: Cholecystectomy HEENT: Cataracts - Present Medications Home Medications: Ambulatory Orders Medication Instructions Recorded Confirmed Benzonatate 1 cap PO TID 08/31/22 08/31/22 Omeprazole 40 mg PO DAILY PRN 08/31/22 08/31/22 guaiFENesin [Mucus ER] 1,200 mg PO BID 08/31/22 08/31/22 Ipratropium/Albuterol [Duoneb] 3 ml INH RTQID PRN #1 ea 09/01/22 levoFLOXacin [Levaquin] 500 mg PO QD #10 tablet 09/01/22 methylPREDNISolone [Medrol Dose 1 each PO UD 6 Days #1 each 09/01/22 Pack] - Allergies Allergies/Adverse Reactions: Allergies Allergy/AdvReac Type Severity Reaction Status Date / Time No Known Drug Allergies Allergy Verified 09/02/22 15:05 - Social History Does the pt smoke?: No Smoking Status: Former smoker Does the pt drink ETOH?: Yes Does the pt have substance abuse?: No - Immunizations Immunizations are current?: Yes - POLST Patient has POLST: No Results - Vitals Vitals: Vital Signs - 24 hr 09/02/22 15:05 Temperature 36.5 C Heart Rate 93 Respiratory 20 Rate Blood Pressure 145/89 H O2 Saturation 98 Oxygen O2 Source Nasal cannula
[2022-09-02 17:05] LABS: BASOPHILS % (AUTO) 0.4 %; EOSINOPHILS % (AUTO) 1.4 %; HCT - HEMATOCRIT 38.8 % (42.0-52.0); HGB - HEMOGLOBIN 12.7 g/dL (14.0-18.0); LYMPHOCYTES % (AUTO) 7.1 %; MEAN CORPUSCULAR HEMOGLOBIN 30.2 pg (27.0-31.0); MEAN CORPUSCULAR HGB CONC 32.7 g/dL (32.0-36.0); MEAN CORPUSCULAR VOLUME 92.4 fL (80.0-94.0); MEAN PLATELET VOLUME 10.1 fL (7.4-11.4); MONOCYTES % (AUTO) 4.8 %; NEUTROPHILS % (AUTO) 85.3 %; PLT - PLATELET COUNT 183 10^3/uL (130-450); RED CELL DISTRIBUTION WIDTH 13.2 % (12.0-15.0); WHITE BLOOD COUNT 22.5 x10^3/uL (4.8-10.8)
[2022-09-02 17:08] LABS: ABNORMAL LYMPHS % (MANUAL) 0 %; BAND NEUTROPHILS % (MANUAL) 0 %
[2022-09-02 17:16] LABS: LYMPHOCYTES # (MANUAL) 0.9 10^3/uL (1.5-3.5); LYMPHOCYTES % (MANUAL) 4 %; MONOCYTES # (MANUAL) 0.7 10^3/uL (0.0-1.0); NEUTROPHILS # (MANUAL) 20.9 10^3/uL (1.5-6.6); PLATELET ESTIMATE, MANUAL NORMAL (130-450,000) (NORMAL); PLATELET MORPHOLOGY NORMAL APPEARANCE (NORMAL); RBC MORPHOLOGY (MULTIPLE) NORMAL APPEARANCE (NORMAL); WBC MORPHOLOGY (MULTIPLE) NORMAL APPEARANCE (NORMAL)
[2022-09-02 17:17] LABS: DIFFERENTIAL COMMENT MANUAL DIFFERENTIAL
--- NOTE | 2022-09-02 17:25 | ED Physician Documentation ---
History of Present Illness - Stated complaint Stated Complaint: HIGH HR - Chief complaint Chief Complaint: Cardiac - History obtained from History obtained from: Patient - Additonal information Additional information: 72-year-old gentleman with history of oxygen dependent COPD was admitted for symptomatic COVID a couple of days ago and discharged yesterday. He was discharged on albuterol both via nebulizer and inhaler. He returns today because he notes that after he takes his albuterol he feels shaky and his heart rate goes up as high as 100 at home. Otherwise he is feeling better than when h e left. Review of Systems Constitutional: denies: Fever, Chills Cardiac: denies: Chest pain / pressure, Palpitations Respiratory: reports: Dyspnea, Cough PD PAST MEDICAL HISTORY - Past Medical History Cardiovascular: None Respiratory: COPD, Emphysema Endocrine/Autoimmune: None GI: None : None HEENT: Chronic hearing loss Psych: None Musculoskeletal: None Derm: None - Past Surgical History Past Surgical History: No General: Cholecystectomy HEENT: Cataracts - Present Medications Home Medications: Ambulatory Orders Medication Instructions Recorded Confirmed Benzonatate 1 cap PO TID 08/31/22 08/31/22 Omeprazole 40 mg PO DAILY PRN 08/31/22 08/31/22 guaiFENesin [Mucus ER] 1,200 mg PO BID 08/31/22 08/31/22 Ipratropium/Albuterol [Duoneb] 3 ml INH RTQID PRN #1 ea 09/01/22 levoFLOXacin [Levaquin] 500 mg PO QD #10 tablet 09/01/22 methylPREDNISolone [Medrol Dose 1 each PO UD 6 Days #1 each 09/01/22 Pack] Levalbuterol [Xopenex] 1 puffs INH Q4-6H PRN #15 gm 09/02/22 Levalbuterol [Xopenex] 1.25 mg INH RTQ4H PRN #30 ea 09/02/22 - Allergies Allergies/Adverse Reactions: Allergies Allergy/AdvReac Type Severity Reaction Status Date / Time No Known Drug Allergies Allergy Verified 09/02/22 15:05 - Social History Does the pt smoke?: No Smoking Status: Former smoker Does the pt drink ETOH?: Yes Does the pt have substance abuse?: No - Immunizations Immunizations are current?: Yes - POLST Patient has POLST: No PD ED PE NORMAL - Vitals Vital signs reviewed: Yes - General General: Alert and oriented X 3, No acute distress - Neck Neck: Supple, no meningeal sign, No bony TTP - Cardiac Cardiac: RRR, No murmur - Respiratory Respiratory: Other (Diminished but clear, nonlabored) - Abdomen Abdomen: Non tender - Extremities Extremities: Other (Trace pitting pedal edema) - Neuro Neuro: Alert and oriented X 3, Normal speech Results - Vitals Vitals: Vital Signs - 24 hr 09/02/22 15:05 Temperature 36.5 C Heart Rate 93 Respiratory 20 Rate Blood Pressure 145/89 H O2 Saturation 98 Oxygen O2 Source Nasal cannula - EKG (time done) 1727 Rate: Rate (enter#) (88) Rhythm: NSR Strong: Normal Intervals: Normal [place] QRS: Normal Ischemia: Normal ST segments, Q waves (anterior). No: ST elevation c/w ischemia, ST elevation c/w repol Computer interpretation: Agree with computer - Labs Labs: Laboratory Tests 09/02/22 09/02/22 09/02/22 15:52 15:52 16:44 WBC 22.5 H RBC 4.20 L Hgb 12.7 L Hct 38.8 L MCV 92.4 MCH 30.2 MCHC 32.7 RDW 13.2 Plt Count 183 MPV 10.1 Neut # (Auto) Not Reportable Lymph # (Auto) Not Reportable [place] # (Auto) Not Reportable Eos # (Auto) Not Reportable Baso # (Auto) Not Reportable Absolute Nucleated RBC Not Reportable Total Counted 100 Band Neuts % (Manual) 0 Abnorm Lymph % (Manual) 0 Nucleated RBC % Not Reportable Neutrophils # (Manual) 20.9 H Lymphocytes # (Manual) 0.9 L Monocytes # (Manual) 0.7 Eosinophils # (Manual) 0.0 Basophils # (Manual) 0.0 Differential Comment MANUAL DIFFERENTIAL WBC Morphology NORMAL APPEARANCE Platelet Estimate NORMAL (130-450,000) Platelet Morphology NORMAL APPEARANCE RBC Morph Micro Appear NORMAL APPEARANCE Sodium 134 L Potassium 4.5 Chloride 97 L Carbon Dioxide 29 Anion Gap 8.0 BUN 21 H Creatinine 1.0 Estimated GFR (MDRD) 74 L Glucose 108 H Calcium 8.6 Troponin I High Sens 16.3 - Rads (name of study) Single view chest x-ray is unremarkable Radiology: Final report received, EMP read indepedently PD Medical Decision Making - ED course ED course: 72-year-old gentleman presents with palpitations and tachycardia after using albuterol, resolves after a time. He appears well. His white count is improving from discharge. Troponin negative. Chemistry showing mild hyponatremia. Likely side effect of albuterol, we can trial Xopenex but discussed with him that it may also give him similar side effects. Departure - Departure Disposition: 01 Home, Self Care Clinical Impression: COVID, COPD exacerbation Condition: Good Record reviewed to determine appropriate education?: Yes Instructions: ALBUTEROL Oral Inhaler, ED COPD Flare Prescriptions: Levalbuterol [Xopenex] 1.25 mg INH RTQ4H PRN #30 ea PRN Reason: wheeze Levalbuterol [Xopenex] 1 puffs INH Q4-6H PRN #15 gm PRN Reason: Dyspnea Comments: We suspect your rapid heart rate and shakiness is related to the albuterol. I am substituting Xopenex. That said it may have a similar side effect, as long as it passes, it is not dangerous. Return for new or worsening symptoms. Follow-up as recommended per yesterday's discharge instructions.
[2022-09-02 17:50] VITALS: BP 138/103
== END 2022-09-02 17:49 | disposition home or self-care (01) ==
LOC: ED 14:56
DX: J44.1 Chronic obstructive pulmonary disease with (acute) exacerbation (principal); U07.1 COVID-19; Z99.81 Dependence on supplemental oxygen; Z87.891 Personal history of nicotine dependence
CPT/HCPCS: 36415; 80048; 84484; 85025; 93005; 99284

== ENCOUNTER 2022-09-07 08:00 | Outpatient (CLI) | payer MEDICARE ==
[2022-09-07 16:13] LABS: ALBUMIN 3.9 g/dL (3.2-5.5); BILIRUBIN,DIRECT 0.5 mg/dL (0.1-0.5); BILIRUBIN,TOTAL 2.1 mg/dL (0.2-1.0); TOTAL PROTEIN 7.9 g/dL (6.7-8.2)
== END 2022-09-07 23:59 | disposition home or self-care (01) ==
LOC: LAB.R 08:00
PROVIDERS: ATTEND Internal Medicine
DX: U07.1 COVID-19 (principal); J44.9 Chronic obstructive pulmonary disease, unspecified; R74.8 Abnormal levels of other serum enzymes; R11.2 Nausea with vomiting, unspecified; Z79.899 Other long term (current) drug therapy
CPT/HCPCS: 80076